=== PATIENT | male | born 1955 | race Caucasian/White ===

== ENCOUNTER 2023-06-22 06:33 | Outpatient (OUT) | payer MEDICARE, SELFPAY ==
[2023-06-22 07:14] LABS: Basophils Absolute Auto 0.1 10^3/uL (0.0-0.1); Eosinophils Absolute Auto 0.5 10^3/uL (0.0-0.7); Eosinophils Percent Auto 8.7 % (0.9-7.0); Hematocrit 45.4 % (42.0-54.0); Hemoglobin 15.8 g/dL (14.0-18.0); Immature Granulocytes Abs Auto 0.02 10^3/uL (0.00-0.03); Immature Granulocytes Pct Auto 0.3 % (0.0-0.5); Lymphocytes Absolute Auto 1.2 10^3/uL (1.2-3.8); Lymphocytes Percent Auto 19.6 % (20.5-60.0); Mean Corpuscular HGB Conc 34.8 g/dL (29.9-35.2); Mean Corpuscular Hemoglobin 36.1 pg (25.9-34.0); Mean Corpuscular Volume 103.7 fL (80.0-94.0); Mean Platelet Volume 8.6 fL (9.5-13.5); Monocytes Absolute Auto 0.8 10^3/uL (0.3-0.8); Monocytes Percent Auto 12.2 % (1.7-12.0); Neutrophils Absolute Auto 3.6 10^3/uL (1.4-6.5); Neutrophils Percent Auto 58.2 % (43.0-75.0); Platelet Count 310 10^3/uL (150-450); Red Blood Count 4.38 10^6/uL (4.70-6.10); Red Cell Distribution Width 11.2 % (11.0-15.0); White Blood Count 6.2 10^3/uL (4.0-11.0)
[2023-06-22 07:52] LABS: Estimated Average Glucose 103 mg/dL; Glycohemoglobin A1C 5.2 % (4.5-6.2)
[2023-06-22 08:03] LABS: Alanine Aminotransferase 21 U/L (16-63); Albumin Globulin Ratio 1.1; Albumin Level 4.2 g/dL (3.4-5.0); Alkaline Phosphatase 74 U/L (46-116); Aspartate Amino Transferase 21 U/L (15-37); BUN Creatinine Ratio 10.7; Bilirubin Total 0.4 mg/dL (0.2-1.0); Calcium 8.7 mg/dL (8.5-10.1); Carbon Dioxide 26.7 mmol/L (21.0-32.0); Chloride 96 mmol/L (98-107); Cholesterol 186 mg/dL (<=200); Estimated GFR (African America >60 (>=60); Estimated GFR (Non-African Ame >60 (>=60); Free T3 2.63 pg/mL (2.18-3.98); Globulin 3.7 g/dL; Glucose 93 mg/dL (74-106); HDL Cholesterol 95 mg/dL (40-60); Potassium 4.7 mmol/L (3.5-5.1); Sodium 134 mmol/L (136-145); Thyroid Stimulating Hormone 1.307 uIU/mL (0.358-3.740); Total Protein 7.9 g/dL (6.4-8.2); Triglycerides 88 mg/dL (<=150); VLDL CHOLESTEROL 17.6 mg/dL
[2023-06-22 08:18] LABS: Prostate Specific Antigen Scrn 0.84 ng/mL (<=4.00)
== END 2023-06-22 06:34 | disposition home or self-care (01) ==
LOC: LAB 06:33
PROVIDERS: PCP Family Medicine; Visit Provider Family Medicine
DX: J44.9 Chronic obstructive pulmonary disease, unspecified (principal); N40.0 Benign prostatic hyperplasia without lower urinary tract symptoms; E78.5 Hyperlipidemia, unspecified; R73.09 Other abnormal glucose; Z12.5 Encounter for screening for malignant neoplasm of prostate; R53.83 Other fatigue
CPT/HCPCS: 36415; 80053; 80061; 82607; 82746; 83036; 84436; 84443; 84481; 85025; G0103

== ENCOUNTER 2023-06-28 07:59 | Outpatient (OUT) | payer MEDICARE, SELFPAY ==
--- OUTSIDE RECORDS SUMMARY | 2023-06-28 08:01 | XMS_ITS | CCD ---
Author Name Unknown Address [address] [facility] [address] [place] [address] Organization [facility] Care Team Providers Care Lightout Examiner Name Role Phone VIMAL REYNOLDS Admitting Unavailable VIMAL REYNOLDS Attending Unavailable VIMAL REYNOLDS Referring Unavailable VIMAL REYNOLDS Primary Care Unavailable GUADALUPE, DR PERRY Consulting Unavailable HARESHY, DR PERRY Primary Care Unavailable HOY, DR PERRY Admitting Unavailable HOY, DR PERRY Attending Unavailable HAY, DR HERRERA Consulting Unavailable RIADALLAS Consulting Unavailable HARESHY, DR PERRY Consulting Unavailable GUADALUPE, DR PERRY Primary Care Unavailable HOY, DR PERRY Admitting Unavailable HOY, DR PERRY Attending Unavailable HOY, DR PERRY Consulting Unavailable HOY, DR PERRY Primary Care Unavailable HOY, DR PERRY Admitting Unavailable HOJames, DR PERRY Attending Unavailable Problems Active Problems Problem Classification Problem Date Documented Date Episodic/Chronic Alcohol-related disorders (1 source) Alcohol abuse, uncomplicated; Translations: [ALCOHOL ABUSE UNCOMPLICATED] Onset: 09-11-2021 Chronic Chronic obstructive pulmonary disease and bronchiectasis (1 source) Chronic obstructive pulmonary disease, unspecified; Translations: [COPD UNSPECIFIED] Onset: 06-27-2022 Chronic Coronary atherosclerosis and other heart disease (1 source) Atherosclerotic heart disease of [place] coronary artery without angina pectoris; Translations: [ATHSCL HEART DISEASE OF [place] CORONARY ARTERY W/O ANG PCTRS] Onset: 11-13-2017 Chronic Diabetes mellitus without complication (1 source) Other abnormal glucose; Translations: [OTHER ABNORMAL GLUCOSE] Onset: 06-27-2022 Episodic Diseases of white blood cells (1 source) Elevated white blood cell count, unspecified; Translations: [ELEVATED WHITE BLOOD CELL COUNT UNS] Onset: 09-11-2021 Chronic Disorders of lipid metabolism (1 source) Hyperlipidemia, unspecified; Translations: [HYPERLIPIDEMIA UNSPECIFIED] Onset: 06-27-2022 Chronic Esophageal disorders (1 source) Gastro-esophageal reflux disease without esophagitis; Translations: [GERD WITHOUT ESOPHAGITIS] Onset: 09-11-2021 Chronic Essential hypertension (1 source) Essential (primary) hypertension; Translations: [ESSENTIAL PRIMARY HYPERTENSION] Onset: 09-11-2021 Chronic Hyperplasia of prostate (1 source) Benign prostatic hyperplasia without lower urinary tract symptoms; Translations: [BENIGN PROSTATIC HYPRPLASIA WO LUTS] Onset: 09-11-2021 Chronic Osteoarthritis (1 source) Unspecified osteoarthritis, unspecified site; Translations: [UNSPECIFIED OSTEOARTHRITIS UNS SITE] Onset: 09-11-2021 Chronic Osteoporosis (2 sources) Other osteoporosis without current pathological fracture; Translations: [Age-related osteoporosis without current pathological fracture] Onset: 11-13-2017 Chronic Other lower respiratory disease (8 sources) Other nonspecific abnormal finding of lung field; Translations: [OTHER NONSPECIFIC ABNORMAL FINDING OF LUNG FIELD] Onset: 11-13-2017 Episodic Other male genital disorders (1 source) Male erectile dysfunction, unspecified; Translations: [MALE ERECTILE DYSFUNCTION UNS] Onset: 09-11-2021 Chronic Other screening for suspected conditions (not mental disorders or infectious disease) (2 sources) Encounter for screening for malignant neoplasm of prostate; Translations: [Other specified abnormal findings of blood chemistry] Onset: 09-11-2021 Episodic Peripheral and visceral atherosclerosis (1 source) Atherosclerosis of aorta; Translations: [ATHEROSCLEROSIS OF AORTA] Onset: 11-13-2017 Chronic Substance-related disorders (1 source) Nicotine dependence, cigarettes, uncomplicated; Translations: [NICOTINE DEPEND CIGARETTES UNCOMP] Onset: 09-11-2021 Chronic Unclassified (1 source) NM PET CT SKULL-MID THIGH AND CT CHEST WO CONTRAST Onset: 11-13-2017 Unclassified (1 source) NM PET CT SKULL-MID THIGH Onset: 11-13-2017 Unclassified (1 source) CONTACT W/AND (SUSP) EXPOS COVID-19; Translations: [CONTACT W/AND (SUSP) EXPOS COVID-19] Onset: 09-11-2021 Past or Other Problems Problem Classification Problem Date Documented Da te Episodic/Chronic Abdominal pain (2 sources) Unspecified abdominal pain; Translations: [UNSPECIFIED ABDOMINAL PAIN] Onset: 09-06-2021 Episodic Acute and unspecified renal failure (1 source) Acute kidney failure, unspecified; Translations: [ACUTE KIDNEY FAILURE UNSPECIFIED] Onset: 09-11-2021 Episodic Fluid and electrolyte disorders (2 sources) Hypo-osmolality and hyponatremia; Translations: [Dehydration] Onset: 09-11-2021 Episodic Other aftercare (1 source) Other tool drawing checker (current) drug therapy; Translations: [OTH CUSTODIAL CURRENT DRUG THERAPY] Onset: 09-11-2021 Episodic Pancreatic disorders (not diabetes) (1 source) Alcohol induced acute pancreatitis without necrosis or infection; Translations: [ALCHL INDCD ACT PANCRTS WO NCRS/INF] Onset: 09-11-2021 Episodic Pleurisy; pneumothorax; pulmonary collapse (2 sources) Pleural effusion, not elsewhere classified; Translations: [Pleural plaque without asbestos] Onset: 11-13-2017 Episodic Residual codes; unclassified (1 source) Contact with and (suspected) exposure to asbestos; Translations: [CONTACT AND SUSPECTED EXPOSURE ASBESTOS] Onset: 09-11-2021 Episodic Results Test Name Value Interpretation Reference Range Facility CT CHEST W CONon 07-09-2022 CT CHEST W CON EXAMINATION: CT CHES T W CON HISTORY: Lung field abnormal , follow up nodules COMPARISON: 05/26/2021 TECHNIQUE: Multi-planar CT images were created with IV contrast. Axial, Coronal, and Sagittal images. Dose reduction techniques were achieved by using automated exposure control and/or adjustment of mA and/or kV according to patient size and/or use of iterative reconstruction technique. FINDINGS: LUNGS: Stable moderate centrilobular emphysema right greater than left. Right lung volume loss is unchanged. Mild right-sided bronchiectasis and peribronchial thickening. Stable scattered linear opacities in the right mid to lower lung zone with scattered punctate pulmonary nodules measuring up to 5 mm. PLEURA: Calcified right pleural thickening, grossly stable VASCULATURE: Normal postcontrast opacification of the central pulmonary arterial tree with no filling defects SELIN: No mass or adenopathy. MEDIASTINUM: No mass or adenopathy. CARDIAC: No enlargement or pericardial effusion. Moderate coronary atherosclerosis AORTA: No aneurysm or dissection. CHEST WALL: No mass or axillary adenopathy. BONES: T6 wedge compression fracture with kyphoplasty LIMITED ABDOMEN: Diffuse hypoattenuation of the liver suggesting hepatic steatosis. Punctate calcifications of the spleen, prior granulomatous process OTHER: Negative. IMPRESSION: Mild to moderate emphysema Scattered stable punctate pulmonary nodules Stable right-sided pleural thickening/plaques with calcifications No central pulmonary thromboembolic disease Electronically authenticated by: JENNIFER CARTER Date: 2022-07-09 11:16 Normal [facility] INSULINon 06-23-2022 Insulin 3.4 uIU/mL Normal 2.6-24.9 [facility] Comment on above: Performed By: #### A MY, CMP, LIPA #### [facility] [address] [place] [address] Dr. Pam Young CBC AUTO DIFFon 06-22-2022 BASO # 0.1 103/ul Normal 0.0-0.1 [facility] Comment on above: Performed By: #### C BC #### [facility] [address] [place] [address] Dr. Pam Young Basophils/100 WBC (Bld) 0.8 % Normal 0.2-2.0 [facility] Comment on above: Performed By: #### C BC #### [facility] [address] [place] [address] Dr. Pam Young EO # 0.6 103/ul Normal 0.0-0.7 [facility] Comment on above: Performed By: #### C BC #### [facility] [address] [place] [address] Dr. Pam Young Eosinophils/100 WBC (Bld) 9.0 % Critically high 0.9-7.0 [facility] Comment on above: Performed By: #### C BC #### [facility] [address] [place] [address] Dr. Pam Young Erythrocyte distribution width (RBC) [Ratio] 11.7 % Normal 11.0-15.0 [facility] Comment on above: Performed By: #### C BC #### [facility] [address] [place] [address] Dr. Pam Young Hematocrit (Bld) [Volume fraction] 43.0 % Normal 42.0-54.0 [facility] Comment on above: Performed By: #### C BC #### [facility] [address] [place] [address] Dr. Pam Young Hemoglobin (Bld) [Mass/Vol] 15.5 g/dL Normal 14.0-18.0 [facility] Comment on above: Performed By: #### C BC #### [facility] [address] [place] [address] Dr. aPm Young IG # 0.02 10e3/ul Normal 0.00-0.03 [facility] Comment on above: Performed By: #### C BC #### [facility] [address] [place] [address] Dr. Pam Young IG % 0.3 % Normal 0.0-0.5 [facility] Comment on above: Performed By: #### C BC #### [facility] [address] [place] [address] Dr. Pam Young LYMPH # 1.7 103/ul Normal 1.2-3.8 [facility] Comment on above: Performed By: #### C BC #### [facility] [address] [place] [address] Dr. Pam Young Lymphocytes/100 WBC (Bld) 23.3 % Normal 20.5-60.0 [facility] Comment on above: Performed By: #### C BC #### [facility] [address] [place] [address] Dr. Pam Young MANUAL DIFF REQ NO Normal [facility] Comment on above: Performed By: #### C BC #### [facility] [address] [place] [address] Dr. Pam Young MCH (RBC) [Entitic mass] 36.1 pg Critically high 25.9-34.0 [facility] Comment on above: Performed By: #### C BC #### [facility] [address] [place] [address] Dr. Pam Young MCHC (RBC) [Mass/Vol] 36.0 g/dL Critically high 29.9-35.2 [facility] Comment on above: Performed By: #### C BC #### [facility] [address] [place] [address] Dr. Pam Young MCV (RBC) [Entitic vol] 100.2 fL Critically high 80.0-94.0 [facility] Comment on above: Performed By: #### C BC #### [facility] [address] [address] [address] Pam Young MONO # 0.8 103/ul Normal 0.3-0.8 [facility] Comment on above: Performed By: #### C BC #### [facility] [address] [address] [address] Pam Young Monocytes/100 WBC (Bld) 11.1 % Normal 1.7-12.0 [facility] Comment on above: Performed By: #### C BC #### [facility] [address] [place] [address] Dr. Pam Young NEUT # 3.9 103/ul Normal 1.4-6.5 [facility] Comment on above: Performed By: #### C BC #### [facility] [address] [place] [address] Dr. Pam Young Neutrophils/100 WBC (Bld) 55.5 % Normal 43.0-75.0 [facility] Comment on above: Performed By: #### C BC #### [facility] [address] [place] [address] Dr. Pam Young Platelet mean volume (Bld) [Entitic vol] 8.9 fL Critically low 9.5-13.5 [facility] Comment on above: Performed By: #### C BC #### [facility] [address] [place] [address] Dr. Pam Young PLT 279 103/ul Normal 150-450 [facility] Comment on above: Performed By: #### C BC #### [facility] [address] [place] [address] Dr. Pam Young RBC 4.29 106/ul Critically low 4.70-6.10 [facility] Comment on above: Performed By: #### C BC #### [facility] [address] [place] [address] Dr. Pam Young WBC 7.1 103/ul Normal 4.0-11.0 [facility] Comment on above: Performed By: #### C BC #### [facility] [address] [place] [address] Dr. Pam Young GLYCOHEMOGLOBIN A1Con 2021 ADA RECOMMENDATION SEE BELOW Normal [facility] Comment on above: Result Comment: ADA RECOMMENDED LIMIT 4.0 - 6.0 ADA THERAPEUTIC TARGET < 7.0 ACTION SUGGESTED > 7.0 Performed By: #### A 1C #### [facility] [address] [address] [address] Pam Young Glucose [Mass/Vol] 105 mg/dL Normal [facility] Comment on above: Performed By: #### A 1C #### [facility] [address] [address] [address] Pam Young HbA1c (Bld) [Mass fraction] 5.3 % Normal 4.5-6.2 [facility] Comment on above: Performed By: #### A 1C #### [facility] [address] [place] [address] Dr. Pam Young LIPID PROFILEon 06-22-2022 CHOL-HDL RATIO NORM SEE BELOW Normal [facility] Comment on above: Result Comment: 3.3 - 4.4 LOW RISK 4.4 - 7.1 AVERAGE RISK 7.1 - 11.0 MODERATE RISK >11.0 HIGH RISK Performed By: #### C MP, URIC, LIPID #### [facility] [address] [place] [address] Dr. Pam Young Cholesterol [Mass/Vol] 207 mg/dL Critically high <=200 [facility] Comment on above: Performed By: #### C MP, URIC, LIPID #### [facility] [address] [place] [address] Dr. Pam Young Cholesterol in HDL [Mass/Vol] 72 mg/dL Critically high 40-60 [facility] Comment on above: Performed By: #### C MP, URIC, LIPID #### [facility] [address] [place] [address] Dr. Pam Young Cholesterol in LDL [Mass/Vol] 123.6 mg/dL Normal [facility] Comment on above: Performed By: #### C MP, URIC, LIPID #### [facility] [address] [place] [address] Dr. Pam Young Cholesterol.total/ Cholesterol in HDL [Mass ratio] 2.9 {ratio} Normal [facility] Comment on above: Performed By: #### C MP, URIC, LIPID #### [facility] [address] [address] [address] Pam Young HDL NORMAL > or = 60 mg/dl - LO W CARDIOVASCULAR RISK <40 mg/dl - HIGH CARDIOVASCULAR RISK Normal [facility] Comment on above: Performed By: #### C MP, URIC, LIPID #### [facility] [address] [address] [address] Pam Young LDL CALC NORMAL SEE BELOW Normal [facility] Comment on above: Result Comment: <100 mg/dl OPTIMAL 100 - 129 mg/dl NEAR OR ABOVE OPTIMAL 130 - 159 mg/dl BORDERLINE HIGH 160 - 189 mg/dl HIGH >190 mg/dl VERY HIGH Performed By: #### C MP, URIC, LIPID #### [facility] [address] [address] [address] Pam Young Triglyceride [Mass/Vol] 57 mg/dL Normal <=150 [facility] Comment on above: Performed By: #### C MP, URIC, LIPID #### [facility] [address] [address] [address] Pam Young VLDL CALC 11.4 mg/dL Normal [facility] Comment on above: Performed By: #### C MP, URIC, LIPID #### [facility] [address] [address] [address] Pam Young PROF 14(COMP METB)on 022 Albumin [Mass/Vol] 3.9 g/dL Normal 3.4-5.0 [facility] Comment on above: Performed By: #### C MP, URIC, LIPID #### [facility] [address] [place] [address] Dr. Pam Young Albumin/Globulin [Mass ratio] 1.0 {ratio} Normal [facility] Comment on above: Performed By: #### C MP, URIC, LIPID #### [facility] [address] [address] [address] Pam Young ALP [Catalytic activity/Vol] 73 U/L Normal 46-116 [facility] Comment on above: Performed By: #### C MP, URIC, LIPID #### [facility] [address] [place] [address] Dr. Pam Young ALT [Catalytic activity/Vol] 17 U/L Normal 16-63 [facility] Comment on above: Performed By: #### C MP, URIC, LIPID #### [facility] [address] [place] [address] Dr. Pam Young Anion gap [Moles/Vol] 12.5 mmol/L Normal [facility] Comment on above: Performed By: #### C MP, URIC, LIPID #### [facility] [address] [place] [address] Dr. Pam Young AST [Catalytic activity/Vol] 18 U/L Normal 15-37 [facility] Comment on above: Performed By: #### C MP, URIC, LIPID #### [facility] [address] [place] [address] Dr. Pam Young Bilirubin [Mass/Vol] 0.6 mg/dL Normal 0.2-1.0 [facility] Comment on above: Performed By: #### C MP, URIC, LIPID #### [facility] [address] [place] [address] Dr. Pam Young Calcium [Mass/Vol] 9.0 mg/dL Normal 8.5-10.1 [facility] Comment on above: Performed By: #### C MP, URIC, LIPID #### [facility] [address] [place] [address] Dr. Pam Young Chloride [Moles/Vol] 100 mmol/L Normal 98-107 [facility] Comment on above: Performed By: #### C MP, URIC, LIPID #### [facility] [address] [place] [address] Dr. Pam Young CO2 [Moles/Vol] 26.2 mmol/L Normal 21.0-32.0 [facility] Comment on above: Performed By: #### C MP, URIC, LIPID #### [facility] [address] [place] [address] Dr. Pam Young Creatinine [Mass/Vol] 0.81 mg/dL Normal 0.70-1.30 [facility] Comment on above: Performed By: #### C MP, URIC, LIPID #### [facility] [address] [address] [address] Pam Young EGFR-AF [place] >60 Normal >=60 [facility] Comment on above: Performed By: #### C MP, URIC, LIPID #### [facility] [address] [address] [address] Pam Young EGFR-NON AF [place] >60 Normal >=60 [facility] Comment on above: Performed By: #### C MP, URIC, LIPID #### [facility] [address] [place] [address] Dr. Pam Young Globulin (S) [Mass/Vol] 3.8 g/dL Normal [facility] Comment on above: Performed By: #### C MP, URIC, LIPID #### [facility] [address] [address] [address] Pam Young Glucose [Mass/Vol] 94 mg/dL Normal 74-106 [facility] Comment on above: Performed By: #### C MP, URIC, LIPID #### [facility] [address] [place] [address] Dr. Pam Young Potassium [Moles/Vol] 4.7 mmol/L Normal 3.5-5.1 [facility] Comment on above: Performed By: #### C MP, URIC, LIPID #### [facility] [address] [place] [address] Dr. Pam Young Protein [Mass/Vol] 7.7 g/dL Normal 6.4-8.2 [facility] Comment on above: Performed By: #### C MP, URIC, LIPID #### [facility] [address] [place] [address] Dr. Pam Young Sodium [Moles/Vol] 134 mmol/L Critically low 136-145 [facility] Comment on above: Performed By: #### C MP, URIC, LIPID #### [facility] [address] [place] [address] Dr. Pam Young Urea nitrogen [Mass/Vol] 10.0 mg/dL Normal 7.0-18.0 [facility] Comment on above: Performed By: #### C MP, URIC, LIPID #### [facility] [address] [place] [address] Dr. Pam Young Urea nitrogen/Creatinin e [Mass ratio] 12.3 mg/mg Normal [facility] Comment on above: Performed By: #### C MP, URIC, LIPID #### [facility] [address] [place] [address] Dr. Pam Young URIC ACID SERUMon 06-22-2022 Urate [Mass/Vol] 6.0 mg/dL Normal 3.5-7.2 [facility] Comment on above: Performed By: #### C MP, URIC, LIPID #### [facility] [address] [place] [address] Dr. Pam Young AMYLASEon 09-07-2021 Amylase [Catalytic activity/Vol] 123 U/L Critically high 31-110 [facility] Comment on above: Performed By: #### A MY, CMP, LIPA #### [facility] [address] [place] [address] Dr. Pam Young CBC AUTO DIFFon 09-07-2021 BASO # 0.0 103/ul Normal 0.0-0.1 [facility] Comment on above: Performed By: #### A MY, CMP, LIPA #### [facility] [address] [place] [address] Dr. Pam Young Basophils/100 WBC (Bld) 0.3 % Normal 0.2-2.0 [facility] Comment on above: Performed By: #### A MY, CMP, LIPA #### [facility] [address] [place] [address] Dr. Pam Young EO # 0.1 103/ul Normal 0.0-0.7 [facility] Comment on above: Performed By: #### A MY, CMP, LIPA #### [facility] [address] [place] [address] Dr. Pam Young Eosinophils/100 WBC (Bld) 1.3 % Normal 0.9-7.0 [facility] Comment on above: Performed By: #### A MY, CMP, LIPA #### [facility] [address] [address] [address] Pam Young Erythrocyte distribution width (RBC) [Ratio] 11.9 % Normal 11.0-15.0 [facility] Comment on above: Performed By: #### A MY, CMP, LIPA #### [facility] [address] [place] [address] Dr. Pam Young Hematocrit (Bld) [Volume fraction] 37.3 % Critically low 42.0-54.0 [facility] Comment on above: Performed By: #### A MY, CMP, LIPA #### [facility] [address] [place] [address] Dr. Pam Young Hemoglobin (Bld) [Mass/Vol] 12.4 g/dL Critically low 14.0-18.0 [facility] Comment on above: Performed By: #### A MY, CMP, LIPA #### [facility] [address] [place] [address] Dr. Pam Young IG # 0.05 10e3/ul Critically high 0.00-0.03 [facility] Comment on above: Performed By: #### A MY, CMP, LIPA #### [facility] [address] [place] [address] Dr. Pam Young IG % 0.5 % Normal 0.0-0.5 [facility] Comment on above: Performed By: #### A MY, CMP, LIPA #### [facility] [address] [place] [address] Dr. Pam Young LYMPH # 0.8 103/ul Critically low 1.2-3.8 [facility] Comment on above: Performed By: #### A MY, CMP, LIPA #### [facility] [address] [place] [address] Dr. Pam Young Lymphocytes/100 WBC (Bld) 8.0 % Critically low 20.5-60.0 [facility] Comment on above: Performed By: #### A MY, CMP, LIPA #### [facility] [address] [address] [address] Pam Young MANUAL DIFF REQ NO Normal [facility] Comment on above: Performed By: #### A MY, CMP, LIPA #### [facility] [address] [place] [address] Dr. Pam Young MCH (RBC) [Entitic mass] 34.6 pg Critically high 25.9-34.0 [facility] Comment on above: Performed By: #### A MY, CMP, LIPA #### [facility] [address] [place] [address] Dr. Pam Young MCHC (RBC) [Mass/Vol] 33.2 g/dL Normal 29.9-35.2 [facility] Comment on above: Performed By: #### A MY, CMP, LIPA #### [facility] [address] [place] [address] Dr. Pam Young MCV (RBC) [Entitic vol] 104.2 fL Critically high 80.0-94.0 [facility] Comment on above: Performed By: #### A MY, CMP, LIPA #### [facility] [address] [place] [address] Dr. Pam Young MONO # 0.9 103/ul Critically high 0.3-0.8 [facility] Comment on above: Performed By: #### A MY, CMP, LIPA #### [facility] [address] [place] [address] Dr. Pam Young Monocytes/100 WBC (Bld) 8.9 % Normal 1.7-12.0 [facility] Comment on above: Performed By: #### A MY, CMP, LIPA #### [facility] [address] [place] [address] Dr. Pam Young NEUT # 8.3 103/ul Critically high 1.4-6.5 [facility] Comment on above: Performed By: #### A MY, CMP, LIPA #### [facility] [address] [address] [address] Pam Young Neutrophils/100 WBC (Bld) 81.0 % Critically high 43.0-75.0 [facility] Comment on above: Performed By: #### A MY, CMP, LIPA #### [facility] [address] [place] [address] Dr. Pam Young Platelet mean volume (Bld) [Entitic vol] 9.1 fL Critically low 9.5-13.5 [facility] Comment on above: Performed By: #### A MY, CMP, LIPA #### [facility] [address] [place] [address] Dr. Pam Young PLT 230 103/ul Normal 150-450 [facility] Comment on above: Performed By: #### A MY, CMP, LIPA #### [facility] [address] [place] [address] Dr. Pam Young RBC 3.58 106/ul Critically low 4.70-6.10 [facility] Comment on above: Performed By: #### A MY, CMP, LIPA #### [facility] [address] [place] [address] Dr. Pam Young WBC 10.2 103/ul Normal 4.0-11.0 [facility] Comment on above: Performed By: #### A MY, CMP, LIPA #### [facility] [address] [place] [address] Dr. Pam Young LIPASEon 09-07-2021 Lipase [Catalytic activity/Vol] 442.0 U/L Critically high 23.0-300.0 [facility] Comment on above: Performed By: #### A MY, CMP, LIPA #### [facility] [address] [place] [address] Dr. Pam Young OSMOLALITYon 09-07-2021 Osmolality [Osmolality] 266 mosm/kg Critically low 280-301 [facility] Comment on above: Performed By: #### A MY, CMP, LIPA #### [facility] [address] [place] [address] Dr. Pam Young PROF 14(COMP METB)on 022 Albumin [Mass/Vol] 3.1 g/dL Critically low 3.5-5.0 [facility] Comment on above: Performed By: #### A MY, CMP, LIPA #### [facility] [address] [address] [address] Pam Young Albumin/Globulin [Mass ratio] 0.9 {ratio} Normal [facility] Comment on above: Performed By: #### A MY, CMP, LIPA #### [facility] [address] [address] [address] Pam Young ALP [Catalytic activity/Vol] 82 U/L Normal 38-126 [facility] Comment on above: Performed By: #### A MY, CMP, LIPA #### [facility] [address] [place] [address] Dr. Pam Young ALT [Catalytic activity/Vol] 19 U/L Critically low 21-72 [facility] Comment on above: Performed By: #### A MY, CMP, LIPA #### [facility] [address] [address] [address] Pam Young Anion gap [Moles/Vol] 11.5 mmol/L Normal [facility] Comment on above: Performed By: #### A MY, CMP, LIPA #### [facility] [address] [place] [address] Dr. Pam Young AST [Catalytic activity/Vol] 24 U/L Normal 17-59 [facility] Comment on above: Performed By: #### A MY, CMP, LIPA #### [facility] [address] [place] [address] Dr. Pam Young Bilirubin [Mass/Vol] 1.1 mg/dL Normal 0.2-1.3 [facility] Comment on above: Performed By: #### A MY, CMP, LIPA #### [facility] [address] [place] [address] Dr. Pam Young Calcium [Mass/Vol] 8.2 mg/dL Critically low 8.4-10.2 [facility] Comment on above: Performed By: #### A MY, CMP, LIPA #### [facility] [address] [address] [address] Pam Young Chloride [Moles/Vol] 102 mmol/L Normal 98-107 [facility] Comment on above: Performed By: #### A MY, CMP, LIPA #### [facility] [address] [address] [address] Pam Young CO2 [Moles/Vol] 24.0 mmol/L Normal 22.0-30.0 [facility] Comment on above: Performed By: #### A MY, CMP, LIPA #### [facility] [address] [address] [address] Pam Young Creatinine [Mass/Vol] 0.86 mg/dL Normal 0.66-1.25 [facility] Comment on above: Performed By: #### A MY, CMP, LIPA #### [facility] [address] [place] [address] Dr. Pam Young EGFR-AF CHINESE >60 Normal >=60 [facility] Comment on above: Performed By: #### A MY, CMP, LIPA #### [facility] [address] [address] [address] Pam Young EGFR-NON AF CHINESE >60 Normal >=60 [facility] Comment on above: Performed By: #### A MY, CMP, LIPA #### [facility] [address] [place] [address] Dr. Pam Young Globulin (S) [Mass/Vol] 3.5 g/dL Normal [facility] Comment on above: Performed By: #### A MY, CMP, LIPA #### [facility] [address] [address] [address] Pam Young Glucose [Mass/Vol] 100 mg/dL Normal 74-106 [facility] Comment on above: Performed By: #### A MY, CMP, LIPA #### [facility] [address] [address] [address] Pam Young Potassium [Moles/Vol] 3.5 mmol/L Normal 3.4-5.0 [facility] Comment on above: Performed By: #### A MY, CMP, LIPA #### [facility] [address] [place] [address] Dr. Pam Young Protein [Mass/Vol] 6.6 g/dL Normal 6.1-8.2 [facility] Comment on above: Performed By: #### A MY, CMP, LIPA #### [facility] [address] [place] [address] Dr. Pam Young Sodium [Moles/Vol] 134 mmol/L Critically low 137-145 [facility] Comment on above: Performed By: #### A MY, CMP, LIPA #### [facility] [address] [place] [address] Dr. Pam Young Urea nitrogen [Mass/Vol] 10.0 mg/dL Normal 9.0-20.0 [facility] Comment on above: Performed By: #### A MY, CMP, LIPA #### [facility] [address] [place] [address] Dr. Pam Young Urea nitrogen/Creatinin e [Mass ratio] 11.6 mg/mg Normal [facility] Comment on above: Performed By: #### A MY, CMP, LIPA #### [facility] [address] [place] [address] Dr. Pam Young AMMONIAon 09-06-2021 Ammonia (P) [Mass/Vol] ug/dL Critically low 10-30 [facility] Comment on above: Performed By: #### P SASC #### [facility] [address] [place] [address] Dr. Pam Young AMYLASEon 09-06-2021 Amylase [Catalytic activity/Vol] 365 U/L Critically high 31-110 [facility] Comment on above: Result Comment: TEST REPEATED. CRITICAL VALUE VERIFIED Performed By: #### A MY, CMP, LIPA #### [facility] [address] [place] [address] Dr. aPm Young CBC AUTO DIFFon 09-06-2021 BASO # 0.0 103/ul Normal 0.0-0.1 [facility] Comment on above: Performed By: #### A MY, CMP, LIPA #### [facility] [address] [place] [address] Dr. Pam Young Basophils/100 WBC (Bld) 0.2 % Normal 0.2-2.0 [facility] Comment on above: Performed By: #### A MY, CMP, LIPA #### [facility] [address] [place] [address] Dr. Pam Young EO # 0.1 103/ul Normal 0.0-0.7 [facility] Comment on above: Performed By: #### A MY, CMP, LIPA #### [facility] [address] [place] [address] Dr. Pam Young Eosinophils/100 WBC (Bld) 0.7 % Critically low 0.9-7.0 [facility] Comment on above: Performed By: #### A MY, CMP, LIPA #### [facility] [address] [place] [address] Dr. Pam Young Erythrocyte distribution width (RBC) [Ratio] 11.8 % Normal 11.0-15.0 [facility] Comment on above: Performed By: #### A MY, CMP, LIPA #### [facility] [address] [place] [address] Dr. Pam Young Hematocrit (Bld) [Volume fraction] 38.1 % Critically low 42.0-54.0 [facility] Comment on above: Performed By: #### A MY, CMP, LIPA #### [facility] [address] [place] [address] Dr. Pam Young Hemoglobin (Bld) [Mass/Vol] 13.0 g/dL Critically low 14.0-18.0 [facility] Comment on above: Result Comment: Flui ds given Performed By: #### A MY, CMP, LIPA #### [facility] [address] [place] [address] Dr. Pam Young IG # 0.05 10e3/ul Critically high 0.00-0.03 [facility] Comment on above: Performed By: #### A MY, CMP, LIPA #### [facility] [address] [address] [address] Pam Young IG % 0.5 % Normal 0.0-0.5 [facility] Comment on above: Performed By: #### A MY, CMP, LIPA #### [facility] [address] [place] [address] Dr. Pam Young LYMPH # 0.9 103/ul Critically low 1.2-3.8 [facility] Comment on above: Performed By: #### A MY, CMP, LIPA #### [facility] [address] [place] [address] Dr. Pam Young Lymphocytes/100 WBC (Bld) 9.0 % Critically low 20.5-60.0 [facility] Comment on above: Performed By: #### A MY, CMP, LIPA #### [facility] [address] [place] [address] Dr. Pam Young MANUAL DIFF REQ NO Normal [facility] Comment on above: Performed By: #### A MY, CMP, LIPA #### [facility] [address] [place] [address] Dr. Pam Young MCH (RBC) [Entitic mass] 34.9 pg Critically high 25.9-34.0 [facility] Comment on above: Performed By: #### A MY, CMP, LIPA #### [facility] [address] [place] [address] Dr. Pam Young MCHC (RBC) [Mass/Vol] 34.1 g/dL Normal 29.9-35.2 [facility] Comment on above: Performed By: #### A MY, CMP, LIPA #### [facility] [address] [place] [address] Dr. Pam Young MCV (RBC) [Entitic vol] 102.1 fL Critically high 80.0-94.0 [facility] Comment on above: Performed By: #### A MY, CMP, LIPA #### [facility] [address] [place] [address] Dr. Pam Young MONO # 0.9 103/ul Critically high 0.3-0.8 [facility] Comment on above: Performed By: #### A MY, CMP, LIPA #### [facility] [address] [address] [address] Pam Young Monocytes/100 WBC (Bld) 8.6 % Normal 1.7-12.0 [facility] Comment on above: Performed By: #### A MY, CMP, LIPA #### [facility] [address] [place] [address] Dr. Pam Young NEUT # 8.2 103/ul Critically high 1.4-6.5 [facility] Comment on above: Performed By: #### A MY, CMP, LIPA #### [facility] [address] [place] [address] Dr. Pam Young Neutrophils/100 WBC (Bld) 81.0 % Critically high 43.0-75.0 [facility] Comment on above: Performed By: #### A MY, CMP, LIPA #### [facility] [address] [place] [address] Dr. Pam Young Platelet mean volume (Bld) [Entitic vol] 8.8 fL Critically low 9.5-13.5 [facility] Comment on above: Performed By: #### A MY, CMP, LIPA #### [facility] [address] [place] [address] Dr. Pam Young PLT 222 103/ul Normal 150-450 [facility] Comment on above: Performed By: #### A MY, CMP, LIPA #### [facility] [address] [place] [address] Dr. Pam Young RBC 3.73 106/ul Critically low 4.70-6.10 [facility] Comment on above: Performed By: #### A MY, CMP, LIPA #### [facility] [address] [place] [address] Dr. Pam Young WBC 10.2 103/ul Normal 4.0-11.0 [facility] Comment on above: Performed By: #### A MY, CMP, LIPA #### [facility] [address] [place] [address] Dr. Pam Young LIPASEon 09-06-2021 Lipase [Catalytic activity/Vol] 1485.0 U/L Critically high 23.0-300.0 [facility] Comment on above: Result Comment: TEST REPEATED. CRITICAL VALUE VERIFIED Performed By: #### A MY, CMP, LIPA #### [facility] [address] [place] [address] Dr. Pam Young PROF 14(COMP METB)on 022 Albumin [Mass/Vol] 3.2 g/dL Critically low 3.5-5.0 [facility] Comment on above: Performed By: #### A MY, CMP, LIPA #### [facility] [address] [place] [address] Dr. Pam Young Albumin/Globulin [Mass ratio] 1.0 {ratio} Normal [facility] Comment on above: Performed By: #### A MY, CMP, LIPA #### [facility] [address] [place] [address] Dr. Pam Young ALP [Catalytic activity/Vol] 70 U/L Normal 38-126 [facility] Comment on above: Performed By: #### A MY, CMP, LIPA #### [facility] [address] [place] [address] Dr. Pam Young ALT [Catalytic activity/Vol] 21 U/L Normal 21-72 [facility] Comment on above: Performed By: #### A MY, CMP, LIPA #### [facility] [address] [place] [address] Dr. Pam Young Anion gap [Moles/Vol] 10.7 mmol/L Normal [facility] Comment on above: Performed By: #### A MY, CMP, LIPA #### [facility] [address] [place] [address] Dr. Pam Young AST [Catalytic activity/Vol] 22 U/L Normal 17-59 [facility] Comment on above: Performed By: #### A MY, CMP, LIPA #### [facility] [address] [place] [address] Dr. Pam Young Bilirubin [Mass/Vol] 1.3 mg/dL Normal 0.2-1.3 [facility] Comment on above: Performed By: #### A MY, CMP, LIPA #### [facility] [address] [place] [address] Dr. Pam Young Calcium [Mass/Vol] 8.3 mg/dL Critically low 8.4-10.2 [facility] Comment on above: Performed By: #### A MY, CMP, LIPA #### [facility] [address] [place] [address] Dr. Pam Young Chloride [Moles/Vol] 100 mmol/L Normal 98-107 [facility] Comment on above: Performed By: #### A MY, CMP, LIPA #### [facility] [address] [place] [address] Dr. Pam Young CO2 [Moles/Vol] 25.0 mmol/L Normal 22.0-30.0 [facility] Comment on above: Performed By: #### A MY, CMP, LIPA #### [facility] [address] [place] [address] Dr. Pam Yonug Creatinine [Mass/Vol] 0.97 mg/dL Normal 0.66-1.25 [facility] Comment on above: Performed By: #### A MY, CMP, LIPA #### [facility] [address] [place] [address] Dr. Pam Young EGFR-AF CHINESE >60 Normal >=60 [facility] Comment on above: Performed By: #### A MY, CMP, LIPA #### [facility] [address] [place] [address] Dr. Pam Young EGFR-NON AF CHINESE >60 Normal >=60 [facility] Comment on above: Performed By: #### A MY, CMP, LIPA #### [facility] [address] [place] [address] Dr. Pam Young Globulin (S) [Mass/Vol] 3.1 g/dL Normal [facility] Comment on above: Performed By: #### A MY, CMP, LIPA #### [facility] [address] [address] [address] Pam Young Glucose [Mass/Vol] 109 mg/dL Critically high 74-106 T [facility] Comment on above: Performed By: #### A MY, CMP, LIPA #### [facility] [address] [place] [address] Dr. Pam Young Potassium [Moles/Vol] 3.7 mmol/L Normal 3.4-5.0 [facility] Comment on above: Performed By: #### A MY, CMP, LIPA #### [facility] [address] [place] [address] Dr. Pam Young Protein [Mass/Vol] 6.3 g/dL Normal 6.1-8.2 [facility] Comment on above: Performed By: #### A MY, CMP, LIPA #### [facility] [address] [place] [address] Dr. Pam Young Sodium [Moles/Vol] 132 mmol/L Critically low 137-145 [facility] Comment on above: Performed By: #### A MY, CMP, LIPA #### [facility] [address] [place] [address] Dr. Pam Young Urea nitrogen [Mass/Vol] 10.0 mg/dL Normal 9.0-20.0 [facility] Comment on above: Performed By: #### A MY, CMP, LIPA #### [facility] [address] [place] [address] Dr. Pam Young Urea nitrogen/Creatinin e [Mass ratio] 10.3 mg/mg Normal [facility] Comment on above: Performed By: #### A MY, CMP, LIPA #### [facility] [address] [place] [address] Dr. Pam Young AMYLASEon 09-05-2021 Amylase [Catalytic activity/Vol] 904 U/L Critically high 31-110 [facility] Comment on above: Result Comment: TEST REPEATED CRITICAL VALUE VERIFIED Performed By: #### P SASC #### [facility] [address] [place] [address] Dr. Pam Young BILIRUBIN CONJUGATED (DIRECT )on 09-05-2021 BILI, CONJUGATED 0.3 mg/dL Normal 0.0-0.3 [facility] Comment on above: Performed By: #### P SASC #### [facility] [address] [place] [address] Dr. Pam Young CBC AUTO DIFFon 09-05-2021 BASO # 0.0 103/ul Normal 0.0-0.1 [facility] Comment on above: Performed By: #### P SASC #### [facility] [address] [place] [address] Dr. Pam Young Basophils/100 WBC (Bld) 0.2 % Normal 0.2-2.0 [facility] Comment on above: Performed By: #### P SASC #### [facility] [address] [place] [address] Dr. Pam Young EO # 0.0 103/ul Normal 0.0-0.7 [facility] Comment on above: Performed By: #### P SASC #### [facility] [address] [place] [address] Dr. Pam Young Eosinophils/100 WBC (Bld) 0.3 % Critically low 0.9-7.0 [facility] Comment on above: Performed By: #### P SASC #### [facility] [address] [place] [address] Dr. Pam Young Erythrocyte distribution width (RBC) [Ratio] 11.4 % Normal 11.0-15.0 [facility] Comment on above: Performed By: #### P SASC #### [facility] [address] [place] [address] Dr. Pam Young Hematocrit (Bld) [Volume fraction] 42.4 % Normal 42.0-54.0 [facility] Comment on above: Performed By: #### P SASC #### [facility] [address] [place] [address] Dr. Pam Young Hemoglobin (Bld) [Mass/Vol] 15.3 g/dL Normal 14.0-18.0 [facility] Comment on above: Performed By: #### P SASC #### [facility] [address] [address] [address] Pam Young IG # 0.08 10e3/ul Critically high 0.00-0.03 [facility] Comment on above: Performed By: #### P SASC #### [facility] [address] [address] [address] Pam Young IG % 0.5 % Normal 0.0-0.5 [facility] Comment on above: Performed By: #### P SASC #### [facility] [address] [address] [address] Pam Young LYMPH # 0.6 103/ul Critically low 1.2-3.8 [facility] Comment on above: Performed By: #### P SASC #### [facility] [address] [address] [address] Pam Young Lymphocytes/100 WBC (Bld) 3.9 % Critically low 20.5-60.0 [facility] Comment on above: Performed By: #### P SASC #### [facility] [address] [address] [address] Pam Young MANUAL DIFF REQ NO Normal [facility] Comment on above: Performed By: #### P SASC #### [facility] [address] [address] [address] Pam Young MCH (RBC) [Entitic mass] 35.5 pg Critically high 25.9-34.0 [facility] Comment on above: Performed By: #### P SASC #### [facility] [address] [address] [address] Pam Young MCHC (RBC) [Mass/Vol] 36.1 g/dL Critically high 29.9-35.2 [facility] Comment on above: Performed By: #### P SASC #### [facility] [address] [address] [address] Pam Young MCV (RBC) [Entitic vol] 98.4 fL Critically high 80.0-94.0 [facility] Comment on above: Performed By: #### P SASC #### [facility] [address] [address] [address] Pam Young MONO # 1.0 103/ul Critically high 0.3-0.8 [facility] Comment on above: Performed By: #### P SASC #### [facility] [address] [address] [address] Pam Young Monocytes/100 WBC (Bld) 6.5 % Normal 1.7-12.0 [facility] Comment on above: Performed By: #### P SASC #### [facility] [address] [address] [address] Pam Young NEUT # 13.5 103/ul Critically high 1.4-6.5 [facility] Comment on above: Performed By: #### P SASC #### [facility] [address] [address] [address] Pam Young Neutrophils/100 WBC (Bld) 88.6 % Critically high 43.0-75.0 [facility] Comment on above: Performed By: #### P SASC #### [facility] [address] [address] [address] Pam Young Platelet mean volume (Bld) [Entitic vol] 8.9 fL Critically low 9.5-13.5 [facility] Comment on above: Performed By: #### P SASC #### [facility] [address] [address] [address] Pam Young PLT 269 103/ul Normal 150-450 [facility] Comment on above: Performed By: #### P SASC #### [facility] [address] [address] [address] Pam Young RBC 4.31 106/ul Critically low 4.70-6.10 [facility] Comment on above: Performed By: #### P SASC #### [facility] [address] [address] [address] Pam Young WBC 15.2 103/ul Critically high 4.0-11.0 [facility] Comment on above: Performed By: #### P SASC #### [facility] [id number] Pam Young CT ABD/PELV W CONon 09-06-19 CT ABD/PELV W CON EXAMINATION: CT ABD/ PELV W CON HISTORY: GENERALIZED ABDOMINAL PAIN COMPARISON: CT dated 04/02/2020 TECHNIQUE: Oral and IV contrast was administered. Sagittal and coronal reformatted images were produced. Dose reduction techniques were achieved by using automated exposure control and/or adjustment of mA and/or kV according to patient size and/or use of iterative reconstruction technique. FINDINGS: Stable calcified pleural plaques in the right lung with stable overall volume loss in the right lung. There are stable chronic changes in both lung bases. Lower mediastinal structures are stable in appearance. The liver shows stable enlargement with diffuse fatty change. The spleen, adrenal glands, and pancreas enhance normally. The pancreas enhances normally, but there is stranding and free fluid around the pancreas. The kidneys enhance symmetrically and show no calcifications or hydronephrosis. Stable calcified plaque in the aorta and branch vessels. The large and small bowel are normal caliber. Pelvic organs are stable in appearance. Urinary bladder is normal. No free air seen and there are no organized fluid collections to suggest abscess or pseudocyst formation. IMPRESSION: Findings are most consistent with pancreatitis, although other infectious/inflammatory conditions could cause the same appearance. Recommend correlation with appropriate labs. Other stable findings as above. Electronically authenticated by: DALLAS ROLLINS Date: 2021-09-05 10:22 Normal [facility] Covid-19 PCR (CVDTB)on SARS-CoV-2 (COVID-19) RNA CORNELL+probe Ql (Unsp spec) Not detected Normal NOT DETECTED [facility] Comment on above: Result Comment: When diagnostic testing is negative, the possibility of a false negative should be considered in the context of a patient's recent exposures and the presence of clinical signs and symptoms consistent with SARS-CoV-2. This test is not yet approved or cleared by the [place] Food and Drug Administration (FDA). This test was developed by [employer], [place], [place]. The performance characteristics of this test were validated by [facility]. The results are not intended to be used as the sole means for clinical diagnosis or patient management decisions. [facility] is authorized under Clinical Laboratory Improvement Amendments (CLIA) to perform high- complexity testing. This test is not yet approved or cleared by the [place] FDA. When there are no FDA-approved or cleared tests available, and other criteria are met, FDA can make tests available under an emergency access mechanism called an Emergency Use Authorization (EUA). The EUA for this test is supported by the [place] of Health and Human Service's declaration that circumstances exist to justify the emergency use of in vitro diagnostics for the detection and/or diagnosis of the virus that causes COVID-19. This EUA will remain in effect for the duration of the COVID-19 declaration justifying emergency of IVDs, unless it is terminated or revoked by the FDA (after which the test may no longer be used). Performed By: #### P SASC #### [facility] [address] [place] [address] Dr. Pam Young LACTATE/LACTIC ACIDon 2021 Lactate [Moles/Vol] 1.1 mmol/L Normal 0.7-2.0 [facility] Comment on above: Performed By: #### A MY, CMP, LIPA #### [facility] [address] [place] [address] Dr. Pam Young Lactate [Moles/Vol] 1.2 mmol/L Normal 0.7-2.0 [facility] Comment on above: Performed By: #### P SASC #### [facility] [address] [place] [address] Dr. Pam Young LIPASEon 09-05-2021 Lipase [Catalytic activity/Vol] U/L Critically high 23.0-300.0 [facility] Comment on above: Result Comment: TEST REPEATED CRITICAL VALUE VERIIFIED Performed By: #### P SASC #### [facility] [address] [place] [address] Dr. Pam Young PROF 14(COMP METB)on 022 Albumin [Mass/Vol] 4.2 g/dL Normal 3.5-5.0 [facility] Comment on above: Performed By: #### P SASC #### [facility] [address] [place] [address] Dr. Pam Young Albumin/Globulin [Mass ratio] 1.1 {ratio} Normal [facility] Comment on above: Performed By: #### P SASC #### [facility] [address] [address] [address] Pam Young ALP [Catalytic activity/Vol] 87 U/L Normal 38-126 [facility] Comment on above: Performed By: #### P SASC #### [facility] [address] [address] [address] Pam Young ALT [Catalytic activity/Vol] 32 U/L Normal 21-72 [facility] Comment on above: Performed By: #### P SASC #### [facility] [address] [address] [address] Pam Young Anion gap [Moles/Vol] 14.4 mmol/L Normal [facility] Comment on above: Performed By: #### P SASC #### [facility] [address] [place] [address] Dr. Pam Young AST [Catalytic activity/Vol] 33 U/L Normal 17-59 [facility] Comment on above: Result Comment: SPEC IMEN SLIGHTLY LIPEMIC MAY AFFECT K+ AND AST Performed By: #### P SASC #### [facility] [address] [address] [address] Pam Young Bilirubin [Mass/Vol] 1.8 mg/dL Critically high 0.2-1.3 [facility] Comment on above: Performed By: #### P SASC #### [facility] [address] [address] [address] Pam Young Calcium [Mass/Vol] 8.6 mg/dL Normal 8.4-10.2 [facility] Comment on above: Performed By: #### P SASC #### [facility] [address] [place] [address] Dr. Pam Young Chloride [Moles/Vol] 90 mmol/L Critically low 98-107 [facility] Comment on above: Performed By: #### P SASC #### [facility] [address] [place] [address] Dr. Pam Young CO2 [Moles/Vol] 21.7 mmol/L Critically low 22.0-30.0 [facility] Comment on above: Performed By: #### P SASC #### [facility] [address] [address] [address] Pam Young Creatinine [Mass/Vol] 0.73 mg/dL Normal 0.66-1.25 [facility] Comment on above: Performed By: #### P SASC #### [facility] [address] [address] [address] Pam Young EGFR-AF CHINESE >60 Normal >=60 [facility] Comment on above: Performed By: #### P SASC #### [facility] [address] [address] [address] Pam Young EGFR-NON AF CHINESE >60 Normal >=60 [facility] Comment on above: Performed By: #### P SASC #### [facility] [address] [place] [address] Dr. Pam Young Globulin (S) [Mass/Vol] 3.7 g/dL Normal [facility] Comment on above: Performed By: #### P SASC #### [facility] [address] [address] [address] Pam Young Glucose [Mass/Vol] 108 mg/dL Critically high 74-106 [facility] Comment on above: Performed By: #### P SASC #### [facility] [address] [place] [address] Dr. Pam Young Potassium [Moles/Vol] 4.1 mmol/L Normal 3.4-5.0 [facility] Comment on above: Result Comment: SPEC IMEN SLIGHTLY LIPEMIC MAY AFFECT K+ AND AST Performed By: #### P SASC #### [facility] [address] [place] [address] Dr. Pam Young Protein [Mass/Vol] 7.9 g/dL Normal 6.1-8.2 [facility] Comment on above: Performed By: #### P SASC #### [facility] [address] [place] [address] Dr. Pam Young Sodium [Moles/Vol] 122 mmol/L Critically low 137-145 [facility] Comment on above: Result Comment: TEST REPEATED CRITICAL VALUE VERIFIED Performed By: #### P SASC #### [facility] [address] [place] [address] Dr. Pam Young Urea nitrogen [Mass/Vol] 8.0 mg/dL Critically low 9.0-20.0 [facility] Comment on above: Performed By: #### P SASC #### [facility] [address] [place] [address] Dr. Pam Young Urea nitrogen/Creatinin e [Mass ratio] 11.0 mg/mg Normal [facility] Comment on above: Performed By: #### P SASC #### [facility] [address] [place] [address] Dr. Pam Young SODIUM RANDOM URINEon 2021 Sodium (U) [Moles/Vol] 25 mmol/L Critically low 30-90 [facility] Comment on above: Performed By: #### N AU #### [facility] [address] [place] [address] Dr. Pam Young UA RANDOM W/MICROSCOPICon BACTERIA NONE SEEN Normal NONE SEEN [facility] Comment on above: Performed By: #### P SASC #### [facility] [address] [place] [address] Dr. Pam Young Bilirubin Ql (U) Negative Normal NEGATIVE [facility] Comment on above: Performed By: #### P SASC #### [facility] [address] [place] [address] Dr. Pam Young CAST NONE SEEN Normal NONE SEEN [facility] Comment on above: Performed By: #### P SASC #### [facility] [address] [place] [address] Dr. Pam Young Clarity (U) CLEAR Normal CLEAR [facility] Comment on above: Performed By: #### P SASC #### [facility] [address] [place] [address] Dr. Pam Young Color (U) YELLOW Normal YELLOW [facility] Comment on above: Performed By: #### P SASC #### [facility] [address] [address] [address] Pam Young Crystals LM Nom (Urine sed) NONE SEEN Normal NONE SEEN [facility] Comment on above: Performed By: #### P SASC #### [facility] [address] [address] [address] Pam Young Epithelial cells LM Ql (Urine sed) FEW Abnormal NONE SEEN /RARE [facility] Comment on above: Performed By: #### P SASC #### [facility] [address] [address] [address] Pam Young Glucose Ql (U) Negative Normal NEGATIVE [facility] Comment on above: Performed By: #### P SASC #### [facility] [address] [address] [address] Pam Young Hemoglobin Ql (U) TRACE-INTACT Abnormal NEGATIVE [facility] Comment on above: Performed By: #### P SASC #### [facility] [address] [address] [address] Pam Young Ketones Ql (U) 15 mg/dl Abnormal NEGATIVE [facility] Comment on above: Performed By: #### P SASC #### [facility] [address] [address] [address] Pam Young LEUKOCYTES Negative Normal NEGATIVE [facility] Comment on above: Performed By: #### P SASC #### [facility] [address] [address] [address] Pam Young MUCOUS NONE SEEN Normal NONE SEEN [facility] Comment on above: Performed By: #### P SASC #### [facility] [address] [address] [address] Pam Young Nitrite Ql (U) Negative Normal NEGATIVE [facility] Comment on above: Performed By: #### P SASC #### [facility] [address] [address] [address] Pam Young pH (U) 6.0 [pH] Normal 5-9 [facility] Comment on above: Performed By: #### P SASC #### [facility] [address] [address] [address] Pam Young RBC 0-2 Normal 0-2 [facility] Comment on above: Performed By: #### P SASC #### [facility] [address] [place] [address] Dr. Pma Young SPEC GRAVITY 1.020 Normal 1.005-<=1.0 25 [facility] Comment on above: Performed By: #### P SASC #### [facility] [address] [place] [address] Dr. Pam Young UA PROTEIN TRACE Normal NEGATIVE/ TRACE [facility] Comment on above: Performed By: #### P SASC #### [facility] [address] [place] [address] Dr. Pam Young Urobilinogen Qn (U) 0.2 {Tramaine'U}/dL Normal 0.2 - 1.0 [facility] Comment on above: Performed By: #### P SASC #### [facility] [address] [place] [address] Dr. Pam Young WBC NONE SEEN Normal NONE SEEN [facility] Comment on above: Performed By: #### P SASC #### [facility] [address] [place] [address] Dr. Pam Young Physician Referralon 020 Physician Referral [id number]#[id number]:127 Normal [facility] General Surgery Office/Clini c Noteon 04-06-2020 General Surgery Office/Clinic Note Chief Complaint post operative follow up HPI Staff 6 day post operative follow up post EGD and colonoscopy with cecal biopsy. Continues to experience anorexia, bloating and anal leakage. History of Present Illness f/u EGD and colonoscopy; symptoms improved, still with bloating and no appetite; loose stools at times; no emesis; EGD with mild bile reflux and colonoscopy wit prominent vessels in cecum with irritation, no inflammatory changes on biopsy. abd/pelvic ct scan wnl. Review of Systems ROS - Provider Constitutional: no fever, no sweats, no weight loss. Eyes: no glasses, no blurred vision, no visual loss. ENMT: no dentures, no hoarseness, no swallowing difficulties, no hearing loss, no ear infection(s), no nose bleeds. Cardiovascular: normal blood pressure, no chest pain, regular heartbeat, no heart murmur. Respiratory: no shortness of breath, no cough, no asthma, no wheezing. Gastrointestinal: no nausea, no vomiting, no diarrhea, no constipation, no blood in stool, no change in bowel habits, mild abdominal pain, no hepatitis. Genitourinary: no kidney stones, no urine infection, no dysuria. Musculoskeletal: no pain, no weakness. Skin: no changing moles, no rash, no skin lumps. Neurologic: no seizures, no epilepsy, no headache. Psychiatric: no emotional or psychiatric problem. Heme/Lymph: no bleeding problems, no anemia, no blood clots, no transfusions. Allergy/Immunologic: no swollen lymph nodes/glands, no IV drug abuse. Other: Additional ROS info: Except as noted in the above Review of Systems and in the History of Present Illness, all other systems have been reviewed and are negative or noncontributory. Physical Exam Vitals & Measurements T: 36.1 ?C (Tympanic) abd: soft, nontender, nondistended. Assessment/Plan 1. Abnormal weight loss (R63.4: Abnormal weight loss) recommend trial of no dairy products; has bothered him in past; will likely need small bowel evaluation, recommend GI consult for further work up; call with problems/questions. 2. Anorexia (R63.0: Anorexia) see # 1 3. Abdominal bloating (R14.0: Abdominal distension (gaseous)) see # 1 4. Abdominal pain, right upper quadrant (R10.11: Right upper quadrant pain) see # 1 Follow-up No qualifying data available Problem List/Past Medical History Ongoing Abdominal bloating Abdominal pain, right upper quadrant Abnormal weight loss Anorexia BPH (benign prostatic hyperplasia) COPD with emphysema Epigastric pain Erectile dysfunction Family history of pancreatic cancer Hematochezia Multiple nodules of lung Nausea & vomiting Occult blood in stools Osteoporosis Screening for colorectal cancer Smoker Tobacco abuse Historical No qualifying data Procedure/Surgical History Colonoscopy (03/30/2020), EGD - Esophagogastroduodenoscopy (03/30/2020), Colonoscopy normal (02/19/2015), Cervical laminectomy, History of lumbar laminectomy. Medications celecoxib 200 mg Cap, 200 mg= 1 cap(s), Oral, Daily doxazosin 2 mg oral tablet, 2 mg= 1 tab(s), Oral, Daily Protonix 40 mg Tab-DR, 40 mg= 1 tab(s), Oral, Daily Ventolin HFA 90 mcg/inh Aerosol, 2 puff(s), Inhalation, QID, PRN Viagra 100 mg Tab, See Instructions Zofran 4 mg Tab, 4 mg= 1 tab(s), Oral, q6hr, PRN Allergies No Known Allergies No Known Medication Allergies Social History Alcohol - Denies Alcohol Use, 06/10/2019 Substance Abuse - Denies Substance Abuse, 06/10/2019 Tobacco 10 or more cigarettes (1/2 pack or more)/day in last 30 days Tobacco Use:. Cigarettes, 06/10/2019 Family History Pancreatic cancer: Brother. Immunizations Vaccine Date Status influenza virus vaccine, inactivated 05/19/2019 Recorded Normal [facility] Comment on above: Result Comment: Elec tronically Signed By: SHIRIN FINCH, Dallas Pitts\Date and Time Signed: 04/06/20 11:59 EDT Ambulatory Clinical Summaryo n 04-05-2020 Ambulatory Clinical Summary {[id number]}CD:6143 68 Normal [facility] Outside Colonoscopyon 2019 Outside Colonoscopy [id number]:127 Normal [facility] Pathology Noteon 04-04-2020 Pathology Note [id number]#1.00CD:127 Normal [facility] RAD - CT Reporton 04-04-[address] - [address] Report [id number]#1.00CD:127 Normal [facility] Provider Letter FTon 03-31 Provider Letter [facility] [place] Clancy [address] [address] Re: JEREMY GARNERGenny Date of : 1955 Thank you for your referral of Jeremy Schneider who was seen on consultation on 03/24/2020 for abnormal weight loss, nausea, vomiting, bloating and abdominal pain. I have enclosed my consultation notes for your review. Sincerely, Dallas Rossi MD General Surgery [facility] Lab Reportson 03-28-2020 Lab Reports [id number]#[id number]:127 [facility] Pre-Certification Formon Pre-Certification Form [id number]#[id number]:127 [facility] Lab Reportson 03-25-2020 Lab Reports [id number]#1.00CD:127 [facility] Ambulatory Clinical Summaryo n 03-24-2020 Ambulatory Clinical Summary {[id number]}CD:6143 68 [facility] Consent for Procedure/Surger yon 03-24-2020 Consent for Procedure/Surgery [id number]:127 [facility] General Surgery Office/Clini c Noteon 03-24-2020 General Surgery Office/Clinic Note Chief Complaint referral for abd pain with nausea and weight loss HPI Staff 64 year old male presents on consultation from Dr. Clancy for abdominal pain and nausea with 18# weight loss over the past several months. Experiencing decrease in appetite; sense of taste is altered. Intermittent vomiting. Experiencing gas and bloating. Stools are mostly loose and greasy. Abdominal US completed 03/12- unremarkable. Last colonoscopy completed 02/2015 with prominent rectal veins. History of Present Illness 64 yo male with h/o abdominal bloating, poor appetite, anorexia, intermittent nausea/vomiting if he tries to eat anything; loose soft, stools, hematochezia for several weeks, now improved; no fevers, no night sweats or chills; worse over last several months, lost 18 lbs; food has no taste, tries to force food down, frequently comes back up; no dysphagia or early satiety, has been on PPI with no improvement; recent GB US wnl; normal cbc; has chest ct yearly, no changes on last one; no previous abdominal operations; had colonoscopy 5 years ago with mild diverticulosis; no previous EGD; fmhx of pancreatic cancer in patient's brother; no fmhx of colon ca or IBD. on Celebrex daily, no asa; no SBE prophylaxis. smokes 1/2 ppd. Review of Systems PHQ Score Initial Depression Screen Score: 0 ROS - Provider Constitutional: no fever, no sweats, moderate weight loss. Eyes: yes glasses, no blurred vision, no visual loss. ENMT: no dentures, no hoarseness, no swallowing difficulties, no hearing loss, no ear infection(s), no nose bleeds. Cardiovascular: normal blood pressure, no chest pain, regular heartbeat, no heart murmur. Respiratory: no shortness of breath, no cough, no asthma, no wheezing. Gastrointestinal: moderate nausea, moderate vomiting, yes diarrhea, no constipation, yes blood in stool, yes change in bowel habits, mild abdominal pain, no hepatitis. Genitourinary: no kidney stones, no urine infection, no dysuria. Musculoskeletal: no pain, no weakness. Skin: no changing moles, no rash, no skin lumps. Neurologic: no seizures, no epilepsy, no headache. Psychiatric: no emotional or psychiatric problem. Heme/Lymph: no bleeding problems, no anemia, no blood clots, no transfusions. Allergy/Immunologic: no swollen lymph nodes/glands, no IV drug abuse. Other: Additional ROS info: Except as noted in the above Review of Systems and in the History of Present Illness, all other systems have been reviewed and are negative or noncontributory. Physical Exam Vitals & Measurements T: 36.3 ?C (Tympanic) HR: 70(Peripheral) RR: 16 BP: 110/74 HT: 180.34 cm HT: 180.3 cm WT: 68.9 kg WT: 68.9 kg BMI: 21.19 HEENT: normal conjunctiva, sclera clear, no scleral icterus, EOM intact, PERRLA, oral mucosa moist without lesions. Neck: trachea midline, no mass, symmetric, no thyromegaly or nodules, no adenopathy Respiratory: lungs CTA, respirations non labored. Cardiovascular: regular rate and rhythm, no murmur, no pedal edema or varicosities. Gastrointestinal: soft, non distended, mild tenderness, RUQ and epigastrium, no peritoneal signs, no masses, no palpable hernias, diastasis recti no, no hepatosplenomegaly; normal bs Lymphatic: no cervical adenopathy, no axillary adenopathy, no inguinal adenopathy. Musculoskeletal: normal gait, digits and nails without infection, nodes, cyanosis, clubbing. Skin: no rashes, no lesions, no ulcers, no subcutaneous nodules, induration. Psychiatric/Neuro: oriented to time, place, person, judgement normal, affect appropriate for age, insight intact, no focal deficits. Tests: labs reviewed, x-rays reviewed, review of old records completed, Discussed surgical options, risks, and possible complications with patient. Assessment/Plan 1. Abnormal weight loss (R63.4: Abnormal weight loss) unclear etiology; plan EGD and colonoscopy under anesthesia, informed consent obtained; patient understands the risks associated with COVID-19, and the need for preoperative testing with self-isolation until the procedure. will also obtain abd/pelvic ct scan with contrast, with fine cuts through the pancreas; will call patient with results. Ordered: CT Abdomen/Pelvis w/ Contrast 2. Nausea & vomiting (R11.2: Nausea with vomiting, unspecified) see # 1 3. Abdominal bloating (R14.0: Abdominal distension (gaseous)) see # 1 Ordered: CT Abdomen/Pelvis w/ Contrast 4. Epigastric pain (R10.13: Epigastric pain) see # 1 Ordered: CT Abdomen/Pelvis w/ Contrast 5. Abdominal pain, right upper quadrant (R10.11: Right upper quadrant pain) see # 1 Ordered: CT Abdomen/Pelvis w/ Contrast 6. Hematochezia (K92.1: Melena) see # 1 7. Anorexia (R63.0: Anorexia) see # 1 8. Tobacco abuse (Z72.0: Tobacco use) see # 1 9. Family history of pancreatic cancer (Z80.0: Family history of malignant neoplasm of digestive organs) see # 1 Ordered: CT Abdomen/Pelvis w/ Contrast Follow-up No qualifying data available Patient Education Esophagogastroduodenoscopy Problem List/Past Medical History Ongoing Abdominal bloating Abdominal pain, right upper quadrant Abnormal weight loss Anorexia BPH (benign prostatic hyperplasia) COPD with emphysema Epigastric pain Erectile dysfunction Family history of pancreatic cancer Hematochezia Multiple nodules of lung Nausea & vomiting Occult blood in stools Osteoporosis Screening for colorectal cancer Smoker Tobacco abuse Historical No qualifying data Procedure/Surgical History Colonoscopy normal (02/19/2015), Cervical laminectomy, History of lumbar laminectomy. Medications celecoxib 200 mg Cap, 200 mg= 1 cap(s), Oral, Daily doxazosin 2 mg oral tablet, 2 mg= 1 tab(s), Oral, Daily Protonix 40 mg Tab-DR, 40 mg= 1 tab(s), Oral, Daily Ventolin HFA 90 mcg/inh Aerosol, 2 puff(s), Inhalation, QID, PRN Viagra 100 mg Tab, See Instructions Zofran 4 mg Tab, 4 mg= 1 tab(s), Oral, q6hr, PRN Allergies No Known Allergies No Known Medication Allergies Social History Alcohol - Denies Alcohol Use, 06/10/2019 Substance Abuse - Denies Substance Abuse, 06/10/2019 Tobacco 10 or more cigarettes (1/2 pack or more)/day in last 30 days Tobacco Use:. Cigarettes, 06/10/2019 Family History Pancreatic cancer: Brother. Immunizations Vaccine Date Status influenza virus vaccine, inactivated 05/19/2019 Recorded Normal [facility] Comment on above: Result Comment: Elec tronically Signed By: SHIRIN FINCH, [place] Bo.christiane\Date and Time Signed: 03/24/20 10:08 EDT Patient Educationon 03-24-20 20 Patient Education Esophagogastroduoden oscopy Esophagogastroduodenoscopy (EGD) is a procedure to examine the lining of the esophagus, stomach, and first part of the small intestine (duodenum ). A long, flexible, lighted tube with a camera attached (endoscope ) is inserted down the throat to view these organs. This procedure is done to detect problems or abnormalities, such as inflammation, bleeding, ulcers, or growths, in order to treat them. The procedure lasts about 5?20 minutes. It is usually an outpatient procedure, but it may need to be performed in emergency cases in the hospital. LET YOUR CAREGIVER KNOW ABOUT: ? Allergies to food or medicine. ? All medicines you are taking, including vitamins, herbs, eyedrops, and buti-hkj-xnsyfkq medicines and creams. ? Use of steroids (by mouth or creams). ? Previous problems you or members of your family have had with the use of anesthetics. ? Any blood disorders you have. ? Previous surgeries you have had. ? Other health problems you have. ? Possibility of , if this applies. RISKS AND COMPLICATIONS Generally, EGD is a safe procedure. However, as with any procedure, complications can occur. Possible complications include: ? Infection. ? Bleeding. ? Tearing (perforation ) of the esophagus, stomach, or duodenum. ? Difficulty breathing or not being able to breath. ? Excessive sweating. ? Spasms of the larynx. ? Slowed heartbeat. ? Low blood pressure. BEFORE THE PROCEDURE ? Do not eat or drink anything for 6?8 hours before the procedure or as directed by your caregiver. ? Ask your caregiver about changing or stopping your regular medicines. ? If you wear dentures, be prepared to remove them before the procedure. ? Arrange for someone to drive you home after the procedure. PROCEDURE ? A vein will be accessed to give medicines and fluids. A medicine to relax you (sedative ) and a pain reliever will be given through that access into the vein. ? A numbing medicine (local anesthetic ) may be sprayed on your throat for comfort and to stop you from gagging or coughing. ? A mouth guard may be placed in your mouth to protect your teeth and to keep you from biting on the endoscope. ? You will be asked to lie on your left side. ? The endoscope is inserted down your throat and into the esophagus, stomach, and duodenum. ? Air is put through the endoscope to allow your caregiver to view the lining of your esophagus clearly. ? The esophagus, stomach, and duodenum is then examined. During the exam, your caregiver may: ? Remove tissue to be examined under a microscope (biopsy ) for inflammation, infection, or other medical problems. ? Remove growths. ? Remove objects (foreign bodies ) that are stuck. ? Treat any bleeding with medicines or other devices that stop tissues from bleeding (hot cauters, clipping devices ). ? Widen (dilate ) or stretch narrowed areas of the esophagus and stomach. ? The endoscope will then be withdrawn. AFTER THE PROCEDURE ? You will be taken to a recovery area to be monitored. You will be able to go home once you are stable and alert. ? Do not eat or drink anything until the local anesthetic and numbing medicines have worn off. You may choke. ? It is normal to feel bloated, have pain with swallowing, or have a sore throat for a short time. This will wear off. ? Your caregiver should be able to discuss his or her findings with you. It will take longer to discuss the test results if any biopsies were taken. Document Released: 10/25/2005 Document Revised: 06/10/2013 Document Reviewed: 05/27/2013 ExitCare? Patient Information ?2013 [employer]. Normal [facility] Physician Referralon 020 Physician Referral [id number]:127 [facility] RAD - Ultrasound Reporton RAD - Ultrasound Report [id number]:127 [facility] Reminderson 06-10-2019 Reminders - From: Hugo Ferreira To: N - Clinical; Hugo Ferreira; Sent: 06/10/2019 15:06:48 EST Show up: 02/05/2025 15:06:00 EDT Subject: colonoscopy reminder Reminder/Recall Colonoscopy screening reminder 02/[address] [facility] [address] CHEST WO CONTRASTon 11-13 CT CHEST WO CONTRAST [facility] Department of Radiology [address] [place] [id number] Patient Name: JEREMY SCHNEIDER : 1955 Sex: M Age: Race: White Pt. Location: Patient Status: O Ordered Date: 11/11/2017 10:25:00 AM Completed Date: 11/13/2017 07:40 AM Requesting Provider: VIMAL REYNOLDS Attending Provider: VIMAL REYNOLDS Report Copy To: Signs & Symptoms: R91.8 Other nonspecific abnormal finding of lung field I10 History: Chelita approved per [employer] auth# [id number] 11/11/17-01/10/18 cpt code 88944 Comments: Exam: CT CHEST WO CONTRAST CT CHEST WO CONTRAST 11/13/2017 7:40 AM EDT SIGN AND SYMPTOMS: R91.8 Other nonspecific abnormal finding of lung field I10 TECHNOLOGIST COMMENTS: f/u nodule PROTOCOL: Axial CT images of the chest were obtained without IV contrast. TECHNIQUE: Multidetector CT axial slices of the chest were obtained without IV contrast. Multiplanar reformats were performed and viewed on a separate workstation and reviewed to further define anatomy and possible pathology.Appropriate CT dose lowering techniques were utilized. COMPARISON: PET CT 06/20/2017. CT chest 05/31/2017. FINDINGS: Lower neck: Thyroid gland within normal limits, no supraclavicle adenopathy. Vessels: Mild atherosclerotic changes in the aorta and coronary arteries. Mediastinum and Selin: Right high paraesophageal lymph node is unchanged in size. Interval decrease in size of pretracheal lymph node that showed hypermetabolic activity on PET/CT, now measuring 1.6 x 1 cm in axial diameters, previously 2.1 x 1.3 cm. A right hilar lymph nodes have also decreased in size. There are calcified left hilar lymph nodes unchanged. Heart: Normal size. No pericardial effusion. Airways: Within normal limits Lungs: Volume loss of right lung is again noted. Calcified granuloma in left lung apex. Atelectatic changes and scarring in the right lung, not significantly changed from prior PET/CT. Pleura: Interval decrease in size of right pleural effusion since prior CT. Calcific pleural plaques are again noted, similar in extent to prior CT. There are residual areas of irregular pleural thickening. Chest Wall: Within normal limits. Upper Abdomen: Calcified nodules within the spleen consistent with chronic granulomatous disease. Bones: Evidence of prior lower cervical anterior fusion, and T6 changes of kyphoplasty. Mild wedging of T12. Bony spurring in the lower thoracic spine. IMPRESSION: * Interval decrease in size of right pleural effusion. Irregular residual pleural thickening, with unchanged calcific right pleural plaques. * Interval decrease in size of right pretracheal and right hilar lymph nodes. Right paraesophageal lymph node is unchanged in size. * Evidence of chronic granulomatous disease as above. Approved by:Jose Luis Lay on 11/13/2017 9:35 AM EDT. I, Elham Posey, have reviewed the images and report and concur with these findings. Electronically signed by:Elham Posey. Transcribed by: [id number], User Resident: JOSE LUIS LAY Electronically Signed by: ELHAM POSEY @ 11/13/2017 02:51 PM I personally read this/these film(s) with this resident Normal [facility] Encounters Encounter Date Encounter Type Care Provider Facility Start: 07-06-2022 End: 07-07-[address] ORLANDO CLANCY Facility: Start: 06-22-2022 End: 06-23-[address] ORLANDO CLANCY Facility: Start: 09-06-2021 End: 09-07-2021 Evaluation and management of inpatient DR ORLANDO CLANCY Facility: Start: 11-13-2017 End: 11-14-2017 Patient encounter procedure VIMAL REYNOLDS Facility:[facility] Procedures Date Procedure Procedure Detail Performing Clinician Start: 06-22-[address] DIANA CLANCY Comment on above: Performed By: #### P [facility] #### [facility] [address] [place] [address] Dr. Pam Young Payers Date Payer Category Payer Medicare [id number] 1959 Private Health Insurance CLI [id number] 1955 Unknown [id number] 1955 Unknown [id number] 1955 Unknown [id number] [id number] 1955 Unknown [id number] [id number] Unknown [id number] Unknown [id number] Summary Purpose Family History No Family History Records FoundNo Family History Records FoundNo Family History Records Found Advance Directives No Advanced Directives Records FoundNo Advanced Directives Records FoundNo Advanced Directives Records Found Additional Source Comments (unrecognized sect ion and content) No Status Records FoundNo Status Records FoundNo Status Records Found INFORMATION SOURCE (unrecogn ized section and content) DATE CREATED AUTHOR 10/21/2018 [facility] DATE CREATED AUTHOR AUTHOR'S ORGANIZ ATION 04/14/2020 [facility] DATE CREATED AUTHOR AUTHOR'S ORGANIZ ATION 07/09/[address] [facility] FOR RECORDS PERTAINING TO PATIENTS WHO ARE OR HAVE BEEN ENROLLED IN A CHEMICAL DEPENDENCY/SUBSTANCEABUSE PROGRAM, SOME INFORMATION MAY BE OMITTED. This clinical summary was aggregated from multiple sources. Caution should be exercised in using it in the provision of clinical care. This summary normalizes information from multiple sources, and as a consequence, information in this document may materially change the coding, format and clinical context of patient data. In addition, data may be omitted in some cases. CLINICAL DECISIONS SHOULD BE BASED ON THE PRIMARY CLINICAL RECORDS. [facility]. provides no warranty or guarantee of the accuracy or completeness of information in this document.
--- NOTE | 2023-06-28 08:03 | CT_ITS ---
[address] [address] Patient Name: JEREMY SCHNEIDER MRN: [id number] date: 1955 Sex: M Assigned Patient Location: CT Current Patient Location: CT Accession/Order Number: [id number] Exam Date: 06/28/2023 08:15 Report Date: 06/28/2023 16:12 At the request of: ORLANDO BUTCHER Procedure: CT lung screening low-dose EXAMINATION: CT lung screening low-dose HISTORY: copd J44.9 COMPARISON: CT chest 07/06/2022 TECHNIQUE: Axial, Coronal, and Sagittal images were created without the administration of IV contrast material. Dose reduction techniques were achieved by using automated exposure control and/or adjustment of mA and/or kV according to patient size and/or use of iterative reconstruction technique. FINDINGS: LUNGS: Calcified pleural plaques and adjacent stranding/scarring within right lung base. Scattered calcified granulomas bilaterally. Mild to moderate emphysematous changes. PLEURA: No mass, effusion, or pneumothorax. VASCULATURE: No abnormality. LINH: Calcified lymph nodes compatible with chronic granulomatous disease. MEDIASTINUM: No mass or pathologic adenopathy. CARDIAC: No enlargement, pericardial thickening, or significant calcification. AORTA: No aneurysm or dissection. CHEST WALL: No mass or axillary adenopathy BONES: Remote T6 compression fracture with prior vertebroplasty; stable. Stable mild compression fracture of T12. LIMITED ABDOMEN: No suspicious findings. Limited images of the upper abdomen. OTHER: Negative. CT/CT lung screening low-dose IMPRESSION: 1. Lung-RADS 2- Benign Appearance or Behavior. Nodules with a very low likelihood of becoming a clinically active cancer due to size or lack of growth. Follow-up CT Chest in 1 year. 2. Stable chronic granulomas disease. 3. Stable calcified pleural plaques and adjacent scarring. 3. Stable chronic compression fractures. Electronically authenticated by: RICHARD KNOX Date: 06/28/2023 16:12
== END 2023-06-28 08:00 | disposition home or self-care (01) ==
LOC: CT 07:59
PROVIDERS: PCP Family Medicine; Visit Provider Family Medicine
DX: J44.9 Chronic obstructive pulmonary disease, unspecified (principal); F17.211 Nicotine dependence, cigarettes, in remission
CPT/HCPCS: 71271

== ENCOUNTER 2024-06-26 06:33 | Outpatient (OUT) | payer MEDICARE, SELFPAY ==
--- OUTSIDE RECORDS SUMMARY | 2024-06-26 06:35 | XMS_ITS | CCD ---
Author Organization 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 French Cord Name Role Phone VIMAL REYNOLDS Admitting Unavailable VIMAL REYNOLDS Attending Unavailable VIMAL REYNOLDS Referring Unavailable VIMAL REYNOLDS Primary Care Unavailable GUADALUPE, DR PERRY Consulting Unavailable GUADALUPE, DR PERRY Primary Care Unavailable HARESHY, DR PERRY Admitting Unavailable HOY, DR PERRY Attending Unavailable HAY, DR HERRERA Consulting Unavailable RIADALLAS Consulting Unavailable HOY, DR PERRY Consulting Unavailable HARESHY, DR PERRY Primary Care Unavailable GUADALUPE, DR PERRY Admitting Unavailable HARESHY, DR PERRY Attending Unavailable HOY, DR PERRY Consulting Unavailable HARESHY, DR PERRY Primary Care Unavailable HOY, DR PERRY Admitting Unavailable HOY, DR PERRY Attending Unavailable Problems Active Problems Problem Classification Problem Date Documented Date Episodic/Chronic Alcohol-related disorders (1 source) Alcohol abuse, uncomplicated; Translations: [ALCOHOL ABUSE UNCOMPLICATED] Onset: 09-11-2021 Chronic Chronic obstructive pulmonary disease and bronchiectasis (1 source) Chronic obstructive pulmonary disease, unspecified; Translations: [COPD UNSPECIFIED] Onset: 06-27-2022 Chronic Coronary atherosclerosis and other heart disease (1 source) Atherosclerotic heart disease of [place] coronary artery without angina pectoris; Translations: [ATHSCL HEART DISEASE OF [place] CORONARY ARTERY W/O ANG PCTRS] Onset: 11-13-2017 [...] 09-11-2021 Episodic Other aftercare (1 source) Other ferry terminal agent (current) drug therapy; Translations: [OTH LONGTERM CURRENT DRUG THERAPY] Onset: 09-11-2021 Episodic Pancreatic [...] by: JENNIFER CARTER Date: 2022-07-09 11:16 Normal [facility] INSULINon 06-23-2022 Insulin 3.4 uIU/mL Normal 2.6-24.9 [facility] Comment on above: Performed By: #### A MY, CMP, LIPA #### [facility] [address] [address] [address] Pam Young CBC AUTO DIFFon 06-22-2022 BASO # 0.1 103/ul Normal 0.0-0.1 [facility] Comment on above: Performed By: #### C BC #### [facility] [address] [place] [address] Dr. Pam Young Basophils/100 WBC (Bld) 0.8 % Normal 0.2-2.0 [facility] Comment on above: Performed By: #### C BC #### [facility] [address] [place] [address] Dr. Pam Young EO # 0.6 103/ul Normal 0.0-0.7 [facility] Comment on above: Performed By: #### C BC #### [facility] [address] [place] [address] Dr. Pam Young Eosinophils/100 WBC (Bld) 9.0 % Critically high 0.9-7.0 [facility] Comment on above: Performed By: #### C BC #### [facility] [address] [place] [address] Dr. Pam Young Erythrocyte distribution width (RBC) [Ratio] 11.7 % Normal 11.0-15.0 [facility] Comment on above: Performed By: #### C BC #### [facility] [address] [place] [address] Dr. Pam Young Hematocrit (Bld) [Volume fraction] 43.0 % Normal 42.0-54.0 [facility] Comment on above: Performed By: #### C BC #### [facility] [address] [place] [address] Dr. Pam Young Hemoglobin (Bld) [Mass/Vol] 15.5 g/dL Normal 14.0-18.0 [facility] Comment on above: Performed By: #### C BC #### [facility] [address] [place] [address] Dr. Pam Young IG # 0.02 10e3/ul Normal 0.00-0.03 [facility] Comment on above: Performed By: #### C BC #### [facility] [address] [place] [address] Dr. Pam Young IG % 0.3 % Normal 0.0-0.5 [facility] Comment on above: Performed By: #### C BC #### [facility] [address] [place] [address] Dr. Pam Young LYMPH # 1.7 103/ul Normal 1.2-3.8 [facility] Comment on above: Performed By: #### C BC #### [facility] [address] [place] [address] Dr. Pam Young Lymphocytes/100 WBC (Bld) 23.3 % Normal 20.5-60.0 [facility] Comment on above: Performed By: #### C BC #### [facility] [address] [place] [address] Dr. Pam Young MANUAL DIFF REQ NO Normal [facility] Comment on above: Performed By: #### C BC #### [facility] [address] [place] [address] Dr. Pam Young MCH (RBC) [Entitic mass] 36.1 pg Critically high 25.9-34.0 [facility] Comment on above: Performed By: #### C BC #### [facility] [address] [place] [address] Dr. Pam Young MCHC (RBC) [Mass/Vol] 36.0 g/dL Critically high 29.9-35.2 [facility] Comment on above: Performed By: #### C BC #### [facility] [address] [place] [address] Dr. Pam Young MCV (RBC) [Entitic vol] 100.2 fL Critically high 80.0-94.0 [facility] Comment on above: Performed By: #### C BC #### [facility] [address] [place] [address] Dr. Pam Young MONO # 0.8 103/ul Normal 0.3-0.8 [facility] Comment on above: Performed By: #### C BC #### [facility] [address] [place] [address] Dr. Pam Young Monocytes/100 WBC (Bld) 11.1 % Normal 1.7-12.0 [facility] Comment on above: Performed By: #### C BC #### [facility] [address] [place] [address] Dr. Pam Young NEUT # 3.9 103/ul Normal 1.4-6.5 [facility] Comment on above: Performed By: #### C BC #### [facility] [address] [place] [address] Dr. Pam Young Neutrophils/100 WBC (Bld) 55.5 % Normal 43.0-75.0 [facility] Comment on above: Performed By: #### C BC #### [facility] [address] [place] [address] Dr. Pam Young Platelet mean volume (Bld) [Entitic vol] 8.9 fL Critically low 9.5-13.5 [facility] Comment on above: Performed By: #### C BC #### [facility] [address] [place] [address] Dr. Pam Young PLT 279 103/ul Normal 150-450 [facility] Comment on above: Performed By: #### C BC #### [facility] [address] [place] [address] Dr. Pam Young RBC 4.29 106/ul Critically low 4.70-6.10 [facility] Comment on above: Performed By: #### C BC #### [facility] [address] [place] [address] Dr. Pam Young WBC 7.1 103/ul Normal 4.0-11.0 [facility] Comment on above: Performed By: #### C BC #### [facility] [address] [place] [address] Dr. Pam Young GLYCOHEMOGLOBIN A1Con 2021 ADA RECOMMENDATION SEE BELOW Normal [facility] Comment on above: Result Comment: ADA RECOMMENDED LIMIT 4.0 - 6.0 ADA THERAPEUTIC TARGET < 7.0 ACTION SUGGESTED > 7.0 Performed By: #### A 1C #### [facility] [address] [place] [address] Dr. Pam Young Glucose [Mass/Vol] 105 mg/dL Normal [facility] Comment on above: Performed By: #### A 1C #### [facility] [address] [address] [address] Pam Young HbA1c (Bld) [Mass fraction] 5.3 % Normal 4.5-6.2 [facility] Comment on above: Performed By: #### A 1C #### [facility] [address] [place] [address] Dr. Pam Young LIPID PROFILEon 06-22-2022 CHOL-HDL RATIO NORM SEE BELOW Normal [facility] Comment on above: Result Comment: 3.3 - 4.4 LOW RISK 4.4 - 7.1 AVERAGE RISK 7.1 - 11.0 MODERATE RISK >11.0 HIGH RISK Performed By: #### C MP, URIC, LIPID #### [facility] [address] [place] [address] Dr. Pam Young Cholesterol [Mass/Vol] 207 mg/dL Critically high <=200 [facility] Comment on above: Performed By: #### C MP, URIC, LIPID #### [facility] [address] [place] [address] Dr. Pam Young Cholesterol in HDL [Mass/Vol] 72 mg/dL Critically high 40-60 [facility] Comment on above: Performed By: #### C MP, URIC, LIPID #### [facility] [address] [address] [address] Pam Young Cholesterol in LDL [Mass/Vol] 123.6 mg/dL Normal [facility] Comment on above: Performed By: #### C MP, URIC, LIPID #### [facility] [address] [place] [address] Dr. Pam Young Cholesterol.total/ Cholesterol in HDL [Mass ratio] 2.9 {ratio} Normal [facility] Comment on above: Performed By: #### C MP, URIC, LIPID #### [facility] [address] [address] [address] Pam Young HDL NORMAL > or = 60 mg/dl - LO W CARDIOVASCULAR RISK <40 mg/dl - HIGH CARDIOVASCULAR RISK Normal [facility] Comment on above: Performed By: #### C MP, URIC, LIPID #### [facility] [address] [address] [address] Pam Young LDL CALC NORMAL SEE BELOW Normal [facility] Comment on above: Result Comment: <100 mg/dl OPTIMAL 100 - 129 mg/dl NEAR OR ABOVE OPTIMAL 130 - 159 mg/dl BORDERLINE HIGH 160 - 189 mg/dl HIGH >190 mg/dl VERY HIGH Performed By: #### C MP, URIC, LIPID #### [facility] [address] [place] [address] Dr. Pam Young Triglyceride [Mass/Vol] 57 mg/dL Normal <=150 [facility] Comment on above: Performed By: #### C MP, URIC, LIPID #### [facility] [address] [address] [address] Pam Young VLDL CALC 11.4 mg/dL Normal [facility] Comment on above: Performed By: #### C MP, URIC, LIPID #### [facility] [address] [address] [address] Pam Young PROF 14(COMP METB)on 022 Albumin [Mass/Vol] 3.9 g/dL Normal 3.4-5.0 [facility] Comment on above: Performed By: #### C MP, URIC, LIPID #### [facility] [address] [address] [address] Pam Young Albumin/Globulin [Mass ratio] 1.0 {ratio} Normal [facility] Comment on above: Performed By: #### C MP, URIC, LIPID #### [facility] [address] [address] [address] Pam Young ALP [Catalytic activity/Vol] 73 U/L Normal 46-116 [facility] Comment on above: Performed By: #### C MP, URIC, LIPID #### [facility] [address] [address] [address] Pam Young ALT [Catalytic activity/Vol] 17 U/L Normal 16-63 [facility] Comment on above: Performed By: #### C MP, URIC, LIPID #### [facility] [address] [address] [address] Pam Young Anion gap [Moles/Vol] 12.5 mmol/L Normal [facility] Comment on above: Performed By: #### C MP, URIC, LIPID #### [facility] [address] [address] [address] Pam Young AST [Catalytic activity/Vol] 18 U/L Normal 15-37 [facility] Comment on above: Performed By: #### C MP, URIC, LIPID #### [facility] [address] [address] [address] Pam Young Bilirubin [Mass/Vol] 0.6 mg/dL Normal 0.2-1.0 [facility] Comment on above: Performed By: #### C MP, URIC, LIPID #### [facility] [address] [address] [address] Pam Young Calcium [Mass/Vol] 9.0 mg/dL Normal 8.5-10.1 [facility] Comment on above: Performed By: #### C MP, URIC, LIPID #### [facility] [address] [address] [address] Pam Young Chloride [Moles/Vol] 100 mmol/L Normal 98-107 [facility] Comment on above: Performed By: #### C MP, URIC, LIPID #### [facility] [address] [address] [address] Pam Young CO2 [Moles/Vol] 26.2 mmol/L Normal 21.0-32.0 [facility] Comment on above: Performed By: #### C MP, URIC, LIPID #### [facility] [address] [address] [address] Pam Young Creatinine [Mass/Vol] 0.81 mg/dL Normal 0.70-1.30 [facility] Comment on above: Performed By: #### C MP, URIC, LIPID #### [facility] [address] [place] [address] Dr. Pam Young EGFR-AF [place] >60 Normal >=60 [facility] Comment on above: Performed By: #### C MP, URIC, LIPID #### [facility] [address] [address] [address] Pam Young EGFR-NON AF [place] >60 Normal >=60 [facility] Comment on above: Performed By: #### C MP, URIC, LIPID #### [facility] [address] [place] [address] Dr. Pam Young Globulin (S) [Mass/Vol] 3.8 g/dL Normal [facility] Comment on above: Performed By: #### C MP, URIC, LIPID #### [facility] [address] [place] [address] Dr. Pam Young Glucose [Mass/Vol] 94 mg/dL Normal 74-106 [facility] Comment on above: Performed By: #### C MP, URIC, LIPID #### [facility] [address] [place] [address] Dr. Pam Young Potassium [Moles/Vol] 4.7 mmol/L Normal 3.5-5.1 [facility] Comment on above: Performed By: #### C MP, URIC, LIPID #### [facility] [address] [place] [address] Dr. Pam Young Protein [Mass/Vol] 7.7 g/dL Normal 6.4-8.2 [facility] Comment on above: Performed By: #### C MP, URIC, LIPID #### [facility] [address] [place] [address] Dr. Pam Young Sodium [Moles/Vol] 134 mmol/L Critically low 136-145 [facility] Comment on above: Performed By: #### C MP, URIC, LIPID #### [facility] [address] [place] [address] Dr. Pam Young Urea nitrogen [Mass/Vol] 10.0 mg/dL Normal 7.0-18.0 [facility] Comment on above: Performed By: #### C MP, URIC, LIPID #### [facility] [address] [place] [address] Dr. Pam Young Urea nitrogen/Creatinin e [Mass ratio] 12.3 mg/mg Normal [facility] Comment on above: Performed By: #### C MP, URIC, LIPID #### [facility] [address] [address] [address] Pam Young URIC ACID SERUMon 06-22-2022 Urate [Mass/Vol] 6.0 mg/dL Normal 3.5-7.2 [facility] Comment on above: Performed By: #### C MP, URIC, LIPID #### [facility] [address] [place] [address] Dr. Pam Young AMYLASEon 09-07-2021 Amylase [Catalytic activity/Vol] 123 U/L Critically high 31-110 [facility] Comment on above: Performed By: #### A MY, CMP, LIPA #### [facility] [address] [place] [address] Dr. Pam Young CBC AUTO DIFFon 09-07-2021 BASO # 0.0 103/ul Normal 0.0-0.1 [facility] Comment on above: Performed By: #### A MY, CMP, LIPA #### [facility] [address] [place] [address] Dr. Pam Young Basophils/100 WBC (Bld) 0.3 % Normal 0.2-2.0 [facility] Comment on above: Performed By: #### A MY, CMP, LIPA #### [facility] [address] [place] [address] Dr. Pam Young EO # 0.1 103/ul Normal 0.0-0.7 [facility] Comment on above: Performed By: #### A MY, CMP, LIPA #### [facility] [address] [place] [address] Dr. Pam Young Eosinophils/100 WBC (Bld) 1.3 % Normal 0.9-7.0 [facility] Comment on above: Performed By: #### A MY, CMP, LIPA #### [facility] [address] [place] [address] Dr. Pam Young Erythrocyte distribution width (RBC) [Ratio] 11.9 % Normal 11.0-15.0 [facility] Comment on above: Performed By: #### A MY, CMP, LIPA #### [facility] [address] [place] [address] Dr. Pam Young Hematocrit (Bld) [Volume fraction] 37.3 % Critically low 42.0-54.0 [facility] Comment on above: Performed By: #### A MY, CMP, LIPA #### [facility] [address] [place] [address] Dr. Pam Young Hemoglobin (Bld) [Mass/Vol] 12.4 g/dL Critically low 14.0-18.0 [facility] Comment on above: Performed By: #### A MY, CMP, LIPA #### [facility] [address] [place] [address] Dr. Pam Young IG # 0.05 10e3/ul Critically high 0.00-0.03 [facility] Comment on above: Performed By: #### A MY, CMP, LIPA #### [facility] [address] [place] [address] Dr. Pam Young IG % 0.5 % Normal 0.0-0.5 [facility] Comment on above: Performed By: #### A MY, CMP, LIPA #### [facility] [address] [place] [address] Dr. Pam Young LYMPH # 0.8 103/ul Critically low 1.2-3.8 [facility] Comment on above: Performed By: #### A MY, CMP, LIPA #### [facility] [address] [place] [address] Dr. Pam Young Lymphocytes/100 WBC (Bld) 8.0 % Critically low 20.5-60.0 [facility] Comment on above: Performed By: #### A MY, CMP, LIPA #### [facility] [address] [address] [address] Pam Young MANUAL DIFF REQ NO Normal [facility] Comment on above: Performed By: #### A MY, CMP, LIPA #### [facility] [address] [place] [address] Dr. Pam Young MCH (RBC) [Entitic mass] 34.6 pg Critically high 25.9-34.0 [facility] Comment on above: Performed By: #### A MY, CMP, LIPA #### [facility] [address] [address] [address] Pam Young MCHC (RBC) [Mass/Vol] 33.2 g/dL Normal 29.9-35.2 [facility] Comment on above: Performed By: #### A MY, CMP, LIPA #### [facility] [address] [place] [address] Dr. Pam Young MCV (RBC) [Entitic vol] 104.2 fL Critically high 80.0-94.0 [facility] Comment on above: Performed By: #### A MY, CMP, LIPA #### [facility] [address] [address] [address] Pam Young MONO # 0.9 103/ul Critically high 0.3-0.8 [facility] Comment on above: Performed By: #### A MY, CMP, LIPA #### [facility] [address] [place] [address] Dr. Pam Young Monocytes/100 WBC (Bld) 8.9 % Normal 1.7-12.0 [facility] Comment on above: Performed By: #### A MY, CMP, LIPA #### [facility] [address] [place] [address] Dr. Pam Young NEUT # 8.3 103/ul Critically high 1.4-6.5 [facility] Comment on above: Performed By: #### A MY, CMP, LIPA #### [facility] [address] [place] [address] Dr. Pam Young Neutrophils/100 WBC (Bld) 81.0 % Critically high 43.0-75.0 [facility] Comment on above: Performed By: #### A KIMBERLY CMP, LIPA #### [facility] [address] [place] [address] Dr. Pam Young Platelet mean volume (Bld) [Entitic vol] 9.1 fL Critically low 9.5-13.5 [facility] Comment on above: Performed By: #### A MY CMP, LIPA #### [facility] [address] [place] [address] Dr. Pam Young PLT 230 103/ul Normal 150-450 [facility] Comment on above: Performed By: #### A KIMBERLY CMP, LIPA #### [facility] [address] [place] [address] Dr. Pam Young RBC 3.58 106/ul Critically low 4.70-6.10 [facility] Comment on above: Performed By: #### A KIMBERLY CMP, LIPA #### [facility] [address] [place] [address] Dr. Pam Young WBC 10.2 103/ul Normal 4.0-11.0 [facility] Comment on above: Performed By: #### A KIMBERLY CMP, LIPA #### [facility] [address] [place] [address] Dr. Pam Young LIPASEon 09-07-2021 Lipase [Catalytic activity/Vol] 442.0 U/L Critically high 23.0-300.0 [facility] Comment on above: Performed By: #### A KIMBERLY CMP, LIPA #### [facility] [address] [place] [address] Dr. Pam Young OSMOLALITYon 09-07-2021 Osmolality [Osmolality] 266 mosm/kg Critically low 280-301 [facility] Comment on above: Performed By: #### A KIMBERLY CMP, LIPA #### [facility] [address] [place] [address] Dr. Pam Young PROF 14(COMP METB)on 022 Albumin [Mass/Vol] 3.1 g/dL Critically low 3.5-5.0 [facility] Comment on above: Performed By: #### A MY, CMP, LIPA #### [facility] [address] [place] [address] Dr. Pam Young Albumin/Globulin [Mass ratio] 0.9 {ratio} Normal [facility] Comment on above: Performed By: #### A MY, CMP, LIPA #### [facility] [address] [place] [address] Dr. Pam Young ALP [Catalytic activity/Vol] 82 U/L Normal 38-126 [facility] Comment on above: Performed By: #### A MY, CMP, LIPA #### [facility] [address] [place] [address] Dr. Pam Young ALT [Catalytic activity/Vol] 19 U/L Critically low 21-72 [facility] Comment on above: Performed By: #### A MY, CMP, LIPA #### [facility] [address] [place] [address] Dr. Pam Young Anion gap [Moles/Vol] 11.5 mmol/L Normal [facility] Comment on above: Performed By: #### A MY, CMP, LIPA #### [facility] [address] [place] [address] Dr. Pam Young AST [Catalytic activity/Vol] 24 U/L Normal 17-59 [facility] Comment on above: Performed By: #### A MY, CMP, LIPA #### [facility] [address] [place] [address] Dr. Pam Young Bilirubin [Mass/Vol] 1.1 mg/dL Normal 0.2-1.3 [facility] Comment on above: Performed By: #### A MY, CMP, LIPA #### [facility] [address] [place] [address] Dr. Pam Young Calcium [Mass/Vol] 8.2 mg/dL Critically low 8.4-10.2 [facility] Comment on above: Performed By: #### A MY, CMP, LIPA #### [facility] [address] [place] [address] Dr. Pam Young Chloride [Moles/Vol] 102 mmol/L Normal 98-107 [facility] Comment on above: Performed By: #### A MY, CMP, LIPA #### [facility] [address] [address] [address] Pam Young CO2 [Moles/Vol] 24.0 mmol/L Normal 22.0-30.0 [facility] Comment on above: Performed By: #### A MY, CMP, LIPA #### [facility] [address] [address] [address] Pam Young Creatinine [Mass/Vol] 0.86 mg/dL Normal 0.66-1.25 [facility] Comment on above: Performed By: #### A MY, CMP, LIPA #### [facility] [address] [address] [address] Pam Young EGFR-AF [place] >60 Normal >=60 [facility] Comment on above: Performed By: #### A MY, CMP, LIPA #### [facility] [address] [place] [address] Dr. Pam Young EGFR-NON AF [place] >60 Normal >=60 [facility] Comment on above: Performed By: #### A MY, CMP, LIPA #### [facility] [address] [address] [address] Pam Young Globulin (S) [Mass/Vol] 3.5 g/dL Normal [facility] Comment on above: Performed By: #### A MY, CMP, LIPA #### [facility] [address] [address] [address] Pam Young Glucose [Mass/Vol] 100 mg/dL Normal 74-[address] [facility] [facility] Comment on above: Performed By: #### A MY, CMP, LIPA #### [facility] [address] [address] [address] Pam Young Potassium [Moles/Vol] 3.5 mmol/L Normal 3.4-5.0 [facility] Comment on above: Performed By: #### A MY, CMP, LIPA #### [facility] [address] [address] [address] Pam Young Protein [Mass/Vol] 6.6 g/dL Normal 6.1-8.2 [facility] Comment on above: Performed By: #### A MY, CMP, LIPA #### [facility] [address] [address] [address] Pam Young Sodium [Moles/Vol] 134 mmol/L Critically low 137-145 Th [facility] Comment on above: Performed By: #### A MY, CMP, LIPA #### [facility] [address] [place] [address] Dr. Pam Young Urea nitrogen [Mass/Vol] 10.0 mg/dL Normal 9.0-20.0 [facility] Comment on above: Performed By: #### A MY, CMP, LIPA #### [facility] [address] [place] [address] Dr. Pam Young Urea nitrogen/Creatinin e [Mass ratio] 11.6 mg/mg Normal [facility] Comment on above: Performed By: #### A MY, CMP, LIPA #### [facility] [address] [place] [address] Dr. Pam Young AMMONIAon 09-06-2021 Ammonia (P) [Mass/Vol] ug/dL Critically low 10-30 [facility] Comment on above: Performed By: #### P SASC #### [facility] [address] [place] [address] Dr. Pam Young AMYLASEon 09-06-2021 Amylase [Catalytic activity/Vol] 365 U/L Critically high 31-110 [facility] Comment on above: Result Comment: TEST REPEATED. CRITICAL VALUE VERIFIED Performed By: #### A MY, CMP, LIPA #### [facility] [address] [place] [address] Dr. Pam Young CBC AUTO DIFFon 09-06-2021 BASO # 0.0 103/ul Normal 0.0-0.1 [facility] Comment on above: Performed By: #### A MY, CMP, LIPA #### [facility] [address] [place] [address] Dr. Pam Young Basophils/100 WBC (Bld) 0.2 % Normal 0.2-2.0 [facility] Comment on above: Performed By: #### A MY, CMP, LIPA #### [facility] [address] [place] [address] Dr. Pam Young EO # 0.1 103/ul Normal 0.0-0.7 [facility] Comment on above: Performed By: #### A MY, CMP, LIPA #### [facility] [address] [place] [address] Dr. Pam Young Eosinophils/100 WBC (Bld) 0.7 % Critically low 0.9-7.0 [facility] Comment on above: Performed By: #### A MY, CMP, LIPA #### [facility] [address] [place] [address] Dr. Pam Young Erythrocyte distribution width (RBC) [Ratio] 11.8 % Normal 11.0-15.0 [facility] Comment on above: Performed By: #### A MY, CMP, LIPA #### [facility] [address] [place] [address] Dr. Pam Young Hematocrit (Bld) [Volume fraction] 38.1 % Critically low 42.0-54.0 [facility] Comment on above: Performed By: #### A MY, CMP, LIPA #### [facility] [address] [place] [address] Dr. Pam Young Hemoglobin (Bld) [Mass/Vol] 13.0 g/dL Critically low 14.0-18.0 [facility] Comment on above: Result Comment: Flui ds given Performed By: #### A MY, CMP, LIPA #### [facility] [address] [place] [address] Dr. Pam Young IG # 0.05 10e3/ul Critically high 0.00-0.03 [facility] Comment on above: Performed By: #### A MY, CMP, LIPA #### [facility] [address] [place] [address] Dr. Pam Young IG % 0.5 % Normal 0.0-0.5 [facility] Comment on above: Performed By: #### A MY, CMP, LIPA #### [facility] [address] [place] [address] Dr. Pam Young LYMPH # 0.9 103/ul Critically low 1.2-3.8 [facility] Comment on above: Performed By: #### A MY, CMP, LIPA #### [facility] [address] [place] [address] Dr. Pam Young Lymphocytes/100 WBC (Bld) 9.0 % Critically low 20.5-60.0 [facility] Comment on above: Performed By: #### A MY, CMP, LIPA #### [facility] [address] [place] [address] Dr. aPm Young MANUAL DIFF REQ NO Normal [facility] Comment on above: Performed By: #### A MY, CMP, LIPA #### [facility] [address] [place] [address] Dr. Pam Young MCH (RBC) [Entitic mass] 34.9 pg Critically high 25.9-34.0 [facility] Comment on above: Performed By: #### A MY, CMP, LIPA #### [facility] [address] [place] [address] Dr. Pam Young MCHC (RBC) [Mass/Vol] 34.1 g/dL Normal 29.9-35.2 [facility] Comment on above: Performed By: #### A MY, CMP, LIPA #### [facility] [address] [place] [address] Dr. Pam Young MCV (RBC) [Entitic vol] 102.1 fL Critically high 80.0-94.0 [facility] Comment on above: Performed By: #### A MY, CMP, LIPA #### [facility] [address] [place] [address] Dr. Pam Young MONO # 0.9 103/ul Critically high 0.3-0.8 [facility] Comment on above: Performed By: #### A MY, CMP, LIPA #### [facility] [address] [address] [address] Pam Young Monocytes/100 WBC (Bld) 8.6 % Normal 1.7-12.0 [facility] Comment on above: Performed By: #### A MY, CMP, LIPA #### [facility] [address] [place] [address] Dr. Pam Young NEUT # 8.2 103/ul Critically high 1.4-6.5 [facility] Comment on above: Performed By: #### A MY, CMP, LIPA #### [facility] [address] [place] [address] Dr. Pam Young Neutrophils/100 WBC (Bld) 81.0 % Critically high 43.0-75.0 [facility] Comment on above: Performed By: #### A MY, CMP, LIPA #### [facility] [address] [place] [address] Dr. Pam Young Platelet mean volume (Bld) [Entitic vol] 8.8 fL Critically low 9.5-13.5 [facility] Comment on above: Performed By: #### A MY, CMP, LIPA #### [facility] [address] [place] [address] Dr. Pam Young PLT 222 103/ul Normal 150-450 [facility] Comment on above: Performed By: #### A MY, CMP, LIPA #### [facility] [address] [place] [address] Dr. Pam Young RBC 3.73 106/ul Critically low 4.70-6.10 [facility] Comment on above: Performed By: #### A MY, CMP, LIPA #### [facility] [address] [place] [address] Dr. Pam Young WBC 10.2 103/ul Normal 4.0-11.0 [facility] Comment on above: Performed By: #### A MY, CMP, LIPA #### [facility] [address] [place] [address] Dr. Pam Young LIPASEon 09-06-2021 Lipase [Catalytic activity/Vol] 1485.0 U/L Critically high 23.0-300.0 [facility] Comment on above: Result Comment: TEST REPEATED. CRITICAL VALUE VERIFIED Performed By: #### A MY, CMP, LIPA #### [facility] [address] [address] [address] Pam Young PROF 14(COMP METB)on 022 Albumin [Mass/Vol] 3.2 g/dL Critically low 3.5-5.0 Th e [facility] Comment on above: Performed By: #### A MY, CMP, LIPA #### [facility] [address] [address] [address] Pam Young Albumin/Globulin [Mass ratio] 1.0 {ratio} Normal [facility] Comment on above: Performed By: #### A MY, CMP, LIPA #### [facility] [address] [address] [address] Pam Young ALP [Catalytic activity/Vol] 70 U/L Normal 38-126 [facility] Comment on above: Performed By: #### A MY, CMP, LIPA #### [facility] [address] [address] [address] Pam Young ALT [Catalytic activity/Vol] 21 U/L Normal 21-72 [facility] Comment on above: Performed By: #### A MY, CMP, LIPA #### [facility] [address] [address] [address] Pam Young Anion gap [Moles/Vol] 10.7 mmol/L Normal [facility] Comment on above: Performed By: #### A MY, CMP, LIPA #### [facility] [address] [address] [address] Pam Young AST [Catalytic activity/Vol] 22 U/L Normal 17-59 [facility] Comment on above: Performed By: #### A MY, CMP, LIPA #### [facility] [address] [address] [address] Pam Young Bilirubin [Mass/Vol] 1.3 mg/dL Normal 0.2-1.3 [facility] Comment on above: Performed By: #### A MY, CMP, LIPA #### [facility] [address] [address] [address] Pam Young Calcium [Mass/Vol] 8.3 mg/dL Critically low 8.4-10.2 Th e [facility] Comment on above: Performed By: #### A MY, CMP, LIPA #### [facility] [address] [address] [address] Pam Young Chloride [Moles/Vol] 100 mmol/L Normal 98-107 [facility] Comment on above: Performed By: #### A MY, CMP, LIPA #### [facility] [address] [place] [address] Dr. Pam Young CO2 [Moles/Vol] 25.0 mmol/L Normal 22.0-30.0 [facility] Comment on above: Performed By: #### A MY, CMP, LIPA #### [facility] [address] [place] [address] Dr. Pam Young Creatinine [Mass/Vol] 0.97 mg/dL Normal 0.66-1.25 [facility] Comment on above: Performed By: #### A MY, CMP, LIPA #### [facility] [address] [place] [address] Dr. Pam Young EGFR-AF CAPE VERDEAN >60 Normal >=60 [facility] Comment on above: Performed By: #### A MY, CMP, LIPA #### [facility] [address] [place] [address] Dr. Pam Young EGFR-NON AF CAPE VERDEAN >60 Normal >=60 [facility] Comment on above: Performed By: #### A MY, CMP, LIPA #### [facility] [address] [place] [address] Dr. Pam Young Globulin (S) [Mass/Vol] 3.1 g/dL Normal [facility] Comment on above: Performed By: #### A MY, CMP, LIPA #### [facility] [address] [place] [address] Dr. Pam Young Glucose [Mass/Vol] 109 mg/dL Critically high 74-106 [facility] Comment on above: Performed By: #### A MY, CMP, LIPA #### [facility] [address] [place] [address] Dr. Pam Young Potassium [Moles/Vol] 3.7 mmol/L Normal 3.4-5.0 [facility] Comment on above: Performed By: #### A MY, CMP, LIPA #### [facility] [address] [address] [address] Pam Young Protein [Mass/Vol] 6.3 g/dL Normal 6.1-8.2 [facility] Comment on above: Performed By: #### A MY, CMP, LIPA #### [facility] [address] [place] [address] Dr. Pam Young Sodium [Moles/Vol] 132 mmol/L Critically low 137-145 Th [facility] Comment on above: Performed By: #### A MY, CMP, LIPA #### [facility] [address] [place] [address] Dr. Pam Young Urea nitrogen [Mass/Vol] 10.0 mg/dL Normal 9.0-20.0 [facility] Comment on above: Performed By: #### A MY, CMP, LIPA #### [facility] [address] [place] [address] Dr. Pam Young Urea nitrogen/Creatinin e [Mass ratio] 10.3 mg/mg Normal [facility] Comment on above: Performed By: #### A MY, CMP, LIPA #### [facility] [address] [place] [address] Dr. Pam Young AMYLASEon 09-05-2021 Amylase [Catalytic activity/Vol] 904 U/L Critically high 31-110 [facility] Comment on above: Result Comment: TEST REPEATED CRITICAL VALUE VERIFIED Performed By: #### P SASC #### [facility] [address] [place] [address] Dr. Pam Young BILIRUBIN CONJUGATED (DIRECT )on 09-05-2021 BILI, CONJUGATED 0.3 mg/dL Normal 0.0-0.3 [facility] Comment on above: Performed By: #### P SASC #### [facility] [address] [place] [address] Dr. Pam Young CBC AUTO DIFFon 09-05-2021 BASO # 0.0 103/ul Normal 0.0-0.1 [facility] Comment on above: Performed By: #### P SASC #### [facility] [address] [place] [address] Dr. Pam Young Basophils/100 WBC (Bld) 0.2 % Normal 0.2-2.0 [facility] Comment on above: Performed By: #### P SASC #### [facility] [address] [place] [address] Dr. Pam Young EO # 0.0 103/ul Normal 0.0-0.7 [facility] Comment on above: Performed By: #### P SASC #### [facility] [address] [place] [address] Dr. Pam Young Eosinophils/100 WBC (Bld) 0.3 % Critically low 0.9-7.0 [facility] Comment on above: Performed By: #### P SASC #### [facility] [address] [place] [address] Dr. Pam Young Erythrocyte distribution width (RBC) [Ratio] 11.4 % Normal 11.0-15.0 [facility] Comment on above: Performed By: #### P SASC #### [facility] [address] [place] [address] Dr. Pam Young Hematocrit (Bld) [Volume fraction] 42.4 % Normal 42.0-54.0 [facility] Comment on above: Performed By: #### P SASC #### [facility] [address] [place] [address] Dr. Pam Young Hemoglobin (Bld) [Mass/Vol] 15.3 g/dL Normal 14.0-18.0 [facility] Comment on above: Performed By: #### P SASC #### [facility] [address] [place] [address] Dr. Pam Young IG # 0.08 10e3/ul Critically high 0.00-0.03 [facility] Comment on above: Performed By: #### P SASC #### [facility] [address] [address] [address] Pam Young IG % 0.5 % Normal 0.0-0.5 [facility] Comment on above: Performed By: #### P SASC #### [facility] [address] [address] [address] Pam Young LYMPH # 0.6 103/ul Critically low 1.2-3.8 [facility] Comment on above: Performed By: #### P SASC #### [facility] [address] [address] [address] Pam Young Lymphocytes/100 WBC (Bld) 3.9 % Critically low 20.5-60.0 [facility] Comment on above: Performed By: #### P SASC #### [facility] [address] [address] [address] Pam Young MANUAL DIFF REQ NO Normal [facility] Comment on above: Performed By: #### P SASC #### [facility] [address] [address] [address] Pam Young MCH (RBC) [Entitic mass] 35.5 pg Critically high 25.9-34.0 [facility] Comment on above: Performed By: #### P SASC #### [facility] [address] [address] [address] Pam Young MCHC (RBC) [Mass/Vol] 36.1 g/dL Critically high 29.9-35.2 [facility] Comment on above: Performed By: #### P SASC #### [facility] [address] [address] [address] Pam Young MCV (RBC) [Entitic vol] 98.4 fL Critically high 80.0-94.0 [facility] Comment on above: Performed By: #### P SASC #### [facility] [address] [address] [address] Pam Young MONO # 1.0 103/ul Critically high 0.3-0.8 [facility] Comment on above: Performed By: #### P SASC #### [facility] [address] [place] [address] Dr. Pam Young Monocytes/100 WBC (Bld) 6.5 % Normal 1.7-12.0 [facility] Comment on above: Performed By: #### P SASC #### [facility] [address] [address] [address] Pam Young NEUT # 13.5 103/ul Critically high 1.4-6.5 [facility] Comment on above: Performed By: #### P SASC #### [facility] [address] [place] [address] Dr. Pam Young Neutrophils/100 WBC (Bld) 88.6 % Critically high 43.0-75.0 [facility] Comment on above: Performed By: #### P SASC #### [facility] [address] [place] [address] Dr. Pam Young Platelet mean volume (Bld) [Entitic vol] 8.9 fL Critically low 9.5-13.5 [facility] Comment on above: Performed By: #### P SASC #### [facility] [address] [place] [address] Dr. Pam Young PLT 269 103/ul Normal 150-450 [facility] Comment on above: Performed By: #### P SASC #### [facility] [address] [place] [address] Dr. Pam Young RBC 4.31 106/ul Critically low 4.70-6.10 [facility] Comment on above: Performed By: #### P SASC #### [facility] [address] [place] [address] Dr. Pam Young WBC 15.2 103/ul Critically high 4.0-11.0 [facility] Comment on above: Performed By: #### P SASC #### [facility] [address] [place] [address] ABD/PELV W CONon [...] [place] Date: 2021-09-05 10:22 Normal [facility] Covid-19 PCR (CVDTB)on SARS-CoV-2 (COVID-19) RNA CORNELL+probe Ql (Unsp spec) Not detected Normal NOT DETECTED [facility] Comment on above: Result Comment: When diagnostic testing is negative, the possibility of a false negative should be considered in the context of a patient's recent exposures and the presence of clinical signs and symptoms consistent with SARS-CoV-2. This test is not yet approved or cleared by the [place] Food and Drug Administration (FDA). This test was developed by [employer], [place], [place]. The performance characteristics of this test were validated by The [facility]. The results are not intended to be used as the sole means for clinical diagnosis or patient management decisions. The [facility] is authorized under Clinical Laboratory Improvement Amendments [...] for this test is supported by the Hr Operations Advisor of Health and Human Service's declaration that [...] used). Performed By: #### P SASC #### [facility] [address] [place] [address] Dr. Pam Yuong LACTATE/LACTIC ACIDon 2021 Lactate [Moles/Vol] 1.1 mmol/L Normal 0.7-2.0 [facility] Comment on above: Performed By: #### A MY, CMP, LIPA #### [facility] [address] [place] [address] Dr. Pam Young Lactate [Moles/Vol] 1.2 mmol/L Normal 0.7-2.0 [facility] Comment on above: Performed By: #### P SASC #### [facility] [address] [place] [address] Dr. Pam Young LIPASEon 09-05-2021 Lipase [Catalytic activity/Vol] U/L Critically high 23.0-300.0 [facility] Comment on above: Result Comment: TEST REPEATED CRITICAL VALUE VERIIFIED Performed By: #### P SASC #### [facility] [address] [place] [address] Dr. Pam Young PROF 14(COMP METB)on 022 Albumin [Mass/Vol] 4.2 g/dL Normal 3.5-5.0 [facility] Comment on above: Performed By: #### P SASC #### [facility] [address] [place] [address] Dr. Pam Young Albumin/Globulin [Mass ratio] 1.1 {ratio} Normal [facility] Comment on above: Performed By: #### P SASC #### [facility] [address] [address] [address] Pam Young ALP [Catalytic activity/Vol] 87 U/L Normal 38-126 [facility] Comment on above: Performed By: #### P SASC #### [facility] [address] [address] [address] Pam Young ALT [Catalytic activity/Vol] 32 U/L Normal 21-72 [facility] Comment on above: Performed By: #### P SASC #### [facility] [address] [address] [address] Pam Young Anion gap [Moles/Vol] 14.4 mmol/L Normal [facility] Comment on above: Performed By: #### P SASC #### [facility] [address] [address] [address] Pam Young AST [Catalytic activity/Vol] 33 U/L Normal 17-59 [facility] Comment on above: Result Comment: SPEC IMEN SLIGHTLY LIPEMIC MAY AFFECT K+ AND AST Performed By: #### P SASC #### [facility] [address] [address] [address] Pam Young Bilirubin [Mass/Vol] 1.8 mg/dL Critically high 0.2-1.3 [facility] Comment on above: Performed By: #### P SASC #### [facility] [address] [address] [address] Pam Young Calcium [Mass/Vol] 8.6 mg/dL Normal 8.4-10.[address] [facility] Comment on above: Performed By: #### P SASC #### [facility] [address] [address] [address] Pam Young Chloride [Moles/Vol] 90 mmol/L Critically low 98-107 [facility] Comment on above: Performed By: #### P SASC #### [facility] [address] [address] [address] Pam Young CO2 [Moles/Vol] 21.7 mmol/L Critically low 22.0-30.0 [facility] Comment on above: Performed By: #### P SASC #### [facility] [address] [address] [address] Pam Young Creatinine [Mass/Vol] 0.73 mg/dL Normal 0.66-1.25 [facility] Comment on above: Performed By: #### P SASC #### [facility] [address] [address] [address] Pam Young EGFR-AF CAPE VERDEAN >60 Normal >=60 [facility] Comment on above: Performed By: #### P SASC #### [facility] [address] [address] [address] Pam Young EGFR-NON AF CAPE VERDEAN >60 Normal >=60 [facility] Comment on above: Performed By: #### P SASC #### [facility] [address] [address] [address] Pam Young Globulin (S) [Mass/Vol] 3.7 g/dL Normal [facility] Comment on above: Performed By: #### P SASC #### [facility] [address] [address] [address] Pam Young Glucose [Mass/Vol] 108 mg/dL Critically high 74-106 [facility] Comment on above: Performed By: #### P SASC #### [facility] [address] [address] [address] Pam Young Potassium [Moles/Vol] 4.1 mmol/L Normal 3.4-5.0 [facility] Comment on above: Result Comment: SPEC IMEN SLIGHTLY LIPEMIC MAY AFFECT K+ AND AST Performed By: #### P SASC #### [facility] [address] [address] [address] Pam Young Protein [Mass/Vol] 7.9 g/dL Normal 6.1-8.2 [facility] Comment on above: Performed By: #### P SASC #### [facility] [address] [address] [address] Pam Young Sodium [Moles/Vol] 122 mmol/L Critically low 137-145 [facility] Comment on above: Result Comment: TEST REPEATED CRITICAL VALUE VERIFIED Performed By: #### P SASC #### [facility] [address] [place] [address] Dr. Pam Young Urea nitrogen [Mass/Vol] 8.0 mg/dL Critically low 9.0-20.0 [facility] Comment on above: Performed By: #### P SASC #### [facility] [address] [place] [address] Dr. Pam Young Urea nitrogen/Creatinin e [Mass ratio] 11.0 mg/mg Normal [facility] Comment on above: Performed By: #### P SASC #### [facility] [address] [place] [address] Dr. Pam Young SODIUM RANDOM URINEon 2021 Sodium (U) [Moles/Vol] 25 mmol/L Critically low 30-90 [facility] Comment on above: Performed By: #### N AU #### [facility] [address] [place] [address] Dr. Pam Young UA RANDOM W/MICROSCOPICon BACTERIA NONE SEEN Normal NONE SEEN [facility] Comment on above: Performed By: #### P SASC #### [facility] [address] [place] [address] Dr. Pam Young Bilirubin Ql (U) Negative Normal NEGATIVE [facility] Comment on above: Performed By: #### P SASC #### [facility] [address] [place] [address] Dr. Pam Young CAST NONE SEEN Normal NONE SEEN [facility] Comment on above: Performed By: #### P SASC #### [facility] [address] [place] [address] Dr. Pam Young Clarity (U) CLEAR Normal CLEAR [facility] Comment on above: Performed By: #### P SASC #### [facility] [address] [place] [address] Dr. Pam Young Color (U) YELLOW Normal YELLOW [facility] Comment on above: Performed By: #### P SASC #### [facility] [address] [address] [address] Pam Young Crystals LM Nom (Urine sed) NONE SEEN Normal NONE SEEN [facility] Comment on above: Performed By: #### P SASC #### [facility] [address] [place] [address] Dr. Pam Young Epithelial cells LM Ql (Urine sed) FEW Abnormal NONE SEEN /RARE [facility] Comment on above: Performed By: #### P SASC #### [facility] [address] [address] [address] Pam Young Glucose Ql (U) Negative Normal NEGATIVE [facility] Comment on above: Performed By: #### P SASC #### [facility] [address] [place] [address] Dr. Pam Young Hemoglobin Ql (U) TRACE-INTACT Abnormal NEGATIVE [facility] Comment on above: Performed By: #### P SASC #### [facility] [address] [place] [address] Dr. Pam Young Ketones Ql (U) 15 mg/dl Abnormal NEGATIVE [facility] Comment on above: Performed By: #### P SASC #### [facility] [address] [place] [address] Dr. Pam Young LEUKOCYTES Negative Normal NEGATIVE [facility] Comment on above: Performed By: #### P SASC #### [facility] [address] [place] [address] Dr. Pam Young MUCOUS NONE SEEN Normal NONE SEEN [facility] Comment on above: Performed By: #### P SASC #### [facility] [address] [place] [address] Dr. Pam Young Nitrite Ql (U) Negative Normal NEGATIVE [facility] Comment on above: Performed By: #### P SASC #### [facility] [address] [place] [address] Dr. Pam Young pH (U) 6.0 [pH] Normal 5-9 [facility] Comment on above: Performed By: #### P SASC #### [facility] [address] [place] [address] Dr. Pam Young RBC 0-2 Normal 0-2 [facility] Comment on above: Performed By: #### P SASC #### [facility] [address] [place] [address] Dr. Pam Young SPEC GRAVITY 1.020 Normal 1.005-<=1.0 25 [facility] Comment on above: Performed By: #### P SASC #### [facility] [address] [address] [address] Pam Young UA PROTEIN TRACE Normal NEGATIVE/ TRACE [facility] Comment on above: Performed By: #### P SASC #### [facility] [address] [place] [address] Dr. Pam Young Urobilinogen Qn (U) 0.2 {Tramaine'U}/dL Normal 0.2 - 1.0 [facility] Comment on above: Performed By: #### P SASC #### [facility] [address] [place] [address] Dr. Pam Young WBC NONE SEEN Normal NONE SEEN [facility] Comment on above: Performed By: #### P SASC #### [facility] [address] [place] [address] Dr. Pam Young Physician Referralon 020 Physician Referral [id number]:127 Normal [facility] General Surgery Office/Clini c Noteon 04-06-2020 General [...] influenza virus vaccine, inactivated 05/19/2019 Recorded Normal [facility] Comment on above: Result Comment: Elec tronically Signed By: SHIRIN FINCH, Dallas Pitts\Date and Time Signed: 04/06/20 11:59 EDT Ambulatory Clinical Summaryo n 04-05-2020 Ambulatory Clinical Summary {[id number]}CD:6143 68 Normal [facility] Outside Colonoscopyon 2019 Outside Colonoscopy [id number]#1.00CD:127 Normal [facility] Pathology Noteon 04-04-2020 Pathology Note [id number]#1.00CD:127 Normal [facility] RAD - CT Reporton 04-04-2020 RAD - CT Report [id number]#1.00CD:127 Normal [facility] Provider Letter FTon 03-31 Provider Letter [facility] Orlando Clancy [address] [place] [address] [place] [address] Re: JEREMY SCHNEIDER Date of : 1955 Thank you for your referral of Jeremy Schneider who was seen on consultation on 03/24/2020 for abnormal weight loss, nausea, vomiting, bloating and abdominal pain. I have enclosed my consultation notes for your review. Sincerely, Dallas Rossi MD General Surgery [facility] Lab Reportson 03-28-2020 Lab Reports [id number]#1.00CD:127 [facility] Pre-Certification Formon Pre-Certification Form [id number]#1.00CD:127 [facility] Lab Reportson 03-25-2020 Lab Reports [id number]#1.00CD:127 [facility] Ambulatory Clinical Summaryo n 03-24-2020 Ambulatory Clinical Summary {[id number]}CD:6143 68 [facility] Consent for Procedure/Surger yon 03-24-2020 Consent for Procedure/Surgery [id number]#1.00CD:127 [facility] General Surgery Office/Clini c Noteon 03-24-2020 General [...] influenza virus vaccine, inactivated 05/19/2019 Recorded Normal [facility] Comment on above: Result Comment: Elec tronically [...] are taking, including vitamins, herbs, eyedrops, and hulp-wbl-ibydrlm medicines and creams. ? Use of steroids [...] Document Reviewed: 05/27/2013 [employer]Care? Patient Information ?2013 [employer]. Normal [facility] Physician Referralon 020 Physician Referral [id number]#1.00CD:127 Normal [facility] RAD - Ultrasound Reporton RAD - Ultrasound Report [id number]#1.00CD:127 Normal [facility] Reminderson 06-10-2019 Reminders - From: Hugo Ferreira To: GSN - Clinical; Hugo Ferreira; Sent: 06/10/2019 15:06:48 EST Show up: 02/05/2025 15:06:00 EDT Subject: colonoscopy reminder Reminder/Recall Colonoscopy screening reminder 02/[address] [facility] CT CHEST WO CONTRASTon 11-13 CT CHEST WO CONTRAST [facility] Department of Radiology [address] [place] [id number] Patient Name: JEREMY SCHNEIDER : 1955 Sex: M Age: Race: White Pt. Location: Patient Status: O Ordered Date: 11/11/2017 10:25:00 AM Completed Date: 11/13/2017 07:40 AM Requesting Provider: VIMAL REYNOLDS Attending Provider: VIMAL REYNOLDS Report Copy To: Signs & Symptoms: R91.8 Other nonspecific abnormal finding of lung field I10 History: [place] approved per [employer] auth# [id number] 11/11/17-01/10/18 cpt code 87117 Comments: Exam: CT CHEST WO CONTRAST CT [...] findings. Electronically signed by:Elham Posey. Transcribed by: [email or web address], User Resident: JOSE LUIS LAY Electronically Signed by: ELHAM POSEY @ 11/13/2017 02:51 PM I personally read this/these film(s) with this resident Normal [facility] Encounters Encounter Date Encounter Type Care Provider Facility Start: 07-06-2022 End: 07-07-[address] ORLANDO CLANCY Facility: Start: 06-22-2022 End: 06-23-[address] ORLANDO CLANCY Facility: Start: 09-06-2021 End: 09-07-2021 Evaluation and management of inpatient DR ORLANDO CLANCY Facility:[facility] Start: 11-13-2017 End: 11-14-2017 Patient encounter procedure VIMAL REYNOLDS Facility:[facility] C Procedures Date Procedure Procedure Detail Performing Clinician Start: 06-22-[address] DIANA CLANCY Comment on above: Performed By: #### P [facility] #### [facility] [address] [place] [address] Dr. Pam Young Payers Date Payer Category Payer Medicare [id number] 1959 Private Health Insurance CLI [id number] 1955 Unknown [id number] 1955 Unknown [id number] 2.16.84 [id number] 1955 Unknown [id number] 2.16.84 [id number] 1955 Unknown [id number] 2.16.84 [id number] Unknown [id number] Unknown [id number] Summary Purpose Family History No Family History Records FoundNo Family History Records FoundNo Family History Records Found Advance Directives No Advanced Directives Records FoundNo Advanced Directives Records FoundNo Advanced Directives Records Found Additional Source Comments (unrecognized sect ion and content) No Status Records FoundNo Status Records FoundNo Status Records Found INFORMATION SOURCE (unrecogn ized section and content) DATE CREATED AUTHOR 10/21/2018 [facility] DATE CREATED AUTHOR AUTHOR'S ORGANIZ ATION 04/14/[address] [facility] DATE CREATED AUTHOR AUTHOR'S ORGANIZ ATION 07/09/2022 [facility] RECORDS PERTAINING TO PATIENTS WHO ARE [...] BE BASED ON THE PRIMARY CLINICAL RECORDS. [employer] [facility]. provides no warranty or guarantee of the accuracy or completeness of information in this document.
[2024-06-26 06:47] LABS: Basophils Absolute Auto 0.1 10^3/uL (0.0-0.1); Basophils Percent Auto 0.8 % (0.2-2.0); Eosinophils Absolute Auto 0.5 10^3/uL (0.0-0.7); Eosinophils Percent Auto 8.7 % (0.9-7.0); Hematocrit 43.8 % (42.0-54.0); Hemoglobin 15.9 g/dL (14.0-18.0); Immature Granulocytes Abs Auto 0.01 10^3/uL (0.00-0.03); Immature Granulocytes Pct Auto 0.2 % (0.0-0.5); Lymphocytes Absolute Auto 1.4 10^3/uL (1.2-3.8); Lymphocytes Percent Auto 22.9 % (20.5-60.0); Mean Corpuscular HGB Conc 36.3 g/dL (29.9-35.2); Mean Corpuscular Hemoglobin 37.3 pg (25.9-34.0); Mean Corpuscular Volume 102.8 fL (80.0-94.0); Mean Platelet Volume 8.8 fL (9.5-13.5); Monocytes Absolute Auto 0.7 10^3/uL (0.3-0.8); Monocytes Percent Auto 11.9 % (1.7-12.0); Neutrophils Absolute Auto 3.4 10^3/uL (1.4-6.5); Neutrophils Percent Auto 55.5 % (43.0-75.0); Platelet Count 258 10^3/uL (150-450); Red Blood Count 4.26 10^6/uL (4.70-6.10); Red Cell Distribution Width 10.9 % (11.0-15.0); White Blood Count 6.2 10^3/uL (4.0-11.0)
[2024-06-26 07:07] LABS: Estimated Average Glucose 100 mg/dL; Glycohemoglobin A1C 5.1 % (4.5-6.2)
[2024-06-26 08:56] LABS: Alanine Aminotransferase 23 U/L (16-63); Albumin Globulin Ratio 1.1; Albumin Level 3.7 g/dL (3.4-5.0); Alkaline Phosphatase 67 U/L (46-116); Anion Gap 16.1; Aspartate Amino Transferase 23 U/L (15-37); BUN Creatinine Ratio 7.2; Bilirubin Total 0.6 mg/dL (0.2-1.0); Calcium 8.7 mg/dL (8.5-10.1); Carbon Dioxide 24.6 mmol/L (21.0-32.0); Chloride 98 mmol/L (98-107); Chol HDL Ratio 2.1; Cholesterol 208 mg/dL (<=200); Estimated GFR (African America >60 (>=60 mL/min/1.73m^2); Estimated GFR (Non-African Ame >60 (>=60 mL/min/1.73m^2); Free T3 2.91 pg/mL (2.18-3.98); Globulin 3.4 g/dL; Glucose 100 mg/dL (74-106); HDL Cholesterol 98 mg/dL (40-60); Potassium 4.7 mmol/L (3.5-5.1); Sodium 134 mmol/L (136-145); Thyroid Stimulating Hormone 1.425 uIU/mL (0.358-3.740); Total Protein 7.1 g/dL (6.4-8.2); Triglycerides 61 mg/dL (<=150); VLDL CHOLESTEROL 12.2 mg/dL
[2024-06-27 08:09] LABS: PSA, Free 0.35 ng/mL; Prostate Specific Ag 0.8 ng/mL (0.0-4.0)
[2024-06-30 11:08] LABS: Vitamin B12 342 pg/mL (232-1245)
== END 2024-06-26 06:34 | disposition home or self-care (01) ==
LOC: LAB 06:33
PROVIDERS: PCP Family Medicine; Visit Provider Family Medicine
DX: N40.0 Benign prostatic hyperplasia without lower urinary tract symptoms (principal); J44.9 Chronic obstructive pulmonary disease, unspecified; M25.50 Pain in unspecified joint; N52.9 Male erectile dysfunction, unspecified; K21.9 Gastro-esophageal reflux disease without esophagitis; E11.9 Type 2 diabetes mellitus without complications; E03.9 Hypothyroidism, unspecified; D75.89 Other specified diseases of blood and blood-forming organs
CPT/HCPCS: 36415; 80053; 80061; 82607; 83036; 84153; 84154; 84436; 84443; 84481; 85025

== ENCOUNTER 2025-06-26 06:38 | Outpatient (OUT) | payer MEDICARE, SELFPAY ==
--- OUTSIDE RECORDS SUMMARY | 2025-06-25 03:30 | XMS_ITS ---
Author Organization [facility] in [place] Address [address] [place] [address] Care Team Providers Care Manager Social Work Name Role Phone Emmanuel Clancy Primary Care Provider Allergies No Known Allergies Results Component Value Reference Range Notes UA DIP NONAUTO WO MICRO (810 02) - IN OFFICE (Not yet reviewed by provider) Interpretation: Performing Lab: Notes/Report: COLOR light yellow CLARITYclearGLUCOSEnegBILIRUBINnegKETONEnegSPECIFIC GRAVITY1.276GTKDIhpnEL6 PROTEINnegUROBILINOGENnegNITRITEnegLEUKOCYTE ESTERASEneg REASON FOR VISIT Presents to office alone for yearly check up Medications Medication SIG (Take, Route, Frequency, Duration) Notes Start Date End Date Status Doxazosin Mesylate 2 MG TAKE 1 TABLET BY MOUTH E VERY DAY; Duration: 90 days ActiveCelecoxib 200 MGTAKE 1 CAPSULE BY MOUTH EVERY DAY; Duration: 90Active Famotidine 40 MGTAKE 1 TABLET BY MOUTH TWICE A DAY; Duration: 90ActiveTrelegy Ellipta 100-62.5-25 MCG/ACT1 puff Inhalation Once a day06/24/2024Not-Taking Sildenafil Citrate 100 MGTake 1 tablet by mouth as directed 30 minutes prior to intercourse; Duration: 8ActiveAlbuterol Sulfate HFA 108 (90 Base) MCG/ACTINHALE 2 PUFFS BY MOUTH 4 TIMES A DAY NEEDED DIRECTED FOR 25 DAYS; Duration: 25 Active Social History Tobacco Use: Social History Observation Description Date Details (start date - stop date) Current Smoker 07/08/1968 - NA Tobacco Use/Smoking Question Answer Notes Patient is a current smoker When did you start smoking?07/08/1968How often do you smoke cigarettes?every day How many cigarettes a day do you smoke?11-20How soon after you wake up do you smoke your first cigarette?within 5 minutesAre you interested in quitting? Thinking about quittingAUDIT-C (Standard) Question Answer Notes Did you have a drink containing alcohol in the p ast year? Yes How often did you have six or more drinks on one occasion in the past year?Less than monthly (1 point)How many drinks did you have on a typical day when you were drinking in the past year?3 or 4 drinks (1 point)How often did you have a drink containing alcohol in the past year?Daily or almost daily (4 points)Points 6InterpretationPositive Vital Signs Weight 156.8 lbs 06/25/2025 Height 71 in 06/25/2025 Blood pressure systolic 150 mm Hg 06/25/20 25 Blood pressure diastolic 74 mm Hg 025 BMI 21.87 kg/m2 06/25/2025 Encounters Encounter Location Date Provider Diagnosis [address] [address] 06/25/2025 Emmanuel Hoy BPH (benign prostati c hypertrophy) N40.0 ; Impotence N52.9 ; GERD (gastroesophageal reflux disease) K21.9 and Advanced COPD J44.9 Assessments Encounter Date Diagnosis (ICD Code) Assessment Notes Treatment Notes Treatment Clinical Notes Section Notes 06/25/2025 BPH (benign prostatic hypertroph y) (ICD-10 - N40.0) 06/25/2025Impotence (ICD-10 - N52.9)06/25/2025GERD (gastroesophageal reflux disease) (ICD-10 - K21.9)06/25/2025dvanced COPD (ICD-10 - J44.9) Plan Of Treatment Pending Test Test Name Order Date HEMOGLOBIN A1C (GLYCO) 06/25/2025 LIPID PANEL (CHOL/TRIG/HDL/LDL) 06/25/20 25 UA DIP NONAUTO WO MICRO (81982) - IN OFF ICE 06/25/2025 STOOL OCCULT BLOOD 06/25/2025 THYROID PANEL (T4/TSH/FREE T3) PSA, SCREENING 06/25/2025 CT CHEST LOW DOSE (LDCT) 06/25/2025 CMP (COMP MET ARCHER) w/eGFR CKD-EPI 2024 CBC WITH DIFF 06/25/2025 Progress Notes * Richi SCHNEIDER EDOB: [birth year] (69 yo M)Acc No.[id number]:06/25/2025 UNLOCKED PROGRESS NOTE Progress Note Patient: Rcihi BERNSTEIN :?Daryl RebecaLynn Clancy ([facility]), MDDOB:1955???Age: 69 Y???Sex:MaleDate:06/25/2025Phone:[phone]:[address] [place], [place] [id number] In:08:24 AM ESTCheck Out:08:57 AM EST Subjective: * Chief Complaints: * 1 . Presents to office alone for yearly check up. * HPI: ???General:?BPH - had urolift - doenst fee like it helped GERD HTN - stabel uip here. * ROS: ???EENT:?hearing changes?denies.?visual changes?denies. non-healing mouth sores?denies.?swollen glands or neck lumps?denies.?hoarseness?denies.?sore throat?denies.?difficulty swallowing?denies.?nose bleeds?denies.?nasal congestion?denies.?ear ache?denies.?ear discharge denies.?ringing in ears?denies.?light sensitivity?denies.?eye pain?denies.?blurring?denies.?eye irritation?denies.?double vision?denies. vision loss?denies.?General/Constitutional:?Sweats:?Denies.?Fatigue?denies.?Sleep proble ms?denies.?Anorexia?denies.?Malaise?denies.?Weight loss?denies. Fatigue or Weakness?denies.?Fever or Chills?denies.?Cardiovascular:?Shortness of Breath w/lying flat?denies.?Lightheadedne ss/dizziness?denies.?Chest tightness/ heavy pressure?denies.?Swelling of legs, a nkles, or feet?denies.?Waking up with shortness of breath?denies.?Chest pain&#16 0;denies.?Palpitations?denies.?Weight gain?denies.?Respiratory:?Chronic or frequent cough?denies.?Coughing up blood&#1 60;denies.?Difficulty breathing?denies.?Productive cough?denies.?Snoring&#1 60;denies.?Shortness of breath that awakens from sleep (PND)?denies.?Chest pain? denies.?Sputum production?denies.?Wheezing?denies.?Musculoskeletal:?Joint pain?denies.?Joint Fluid?denies.?Backpain?denies.?Knee pain?denies.?Neck pain?denies.?Joint Stiffness?denies.?Muscle cramps?denies.?Weakness of muscles?denies.?Arthritis?denies.?Muscle aches?denies.?Pain in shoulder(s)?denies.?Swollen joints?denies.? * Medical History: I diopathic acute pancreatitis without infection or necrosis, DVT (deep venous thrombosis), Edema, Age related osteoporosis, Abnormal CXR with multiple nodules, Bulging lumbar disc, BPH (benign prostatic hypertrophy), Advanced COPD. * Surgical History: K yphoplasty (T6) , Colonoscopy , Left shoulder surgery , Rt pinky finger Pin , Discectomy cervical spine , left femur fracture with surgical repair , Urolift 12/21/24. * Family History: F ather: , COPD, AAA, diagnosed with Heart Disease. M other: , diagnosed with Kidney Disease, Heart Disease. B rother(s): alive, lung cancer, pancreatic cancer, diagnosed with Cancer. S ister(s): alive, alcoholism, diagnosed with Diabetes, Hypertension, Heart Disease. S on(s): alive. D shastaer(s): alive. 3 brother(s) , 5 sister(s) . 1 son(s) , 1 daughter(s) - healthy. . * Social History: ???Tobacco Use:?Tobacco Use/Smoking?Patient is a?current smoker ?When did you start smoking??07/08/1968 ?How often do you smoke cigarettes??every day ?How many cigarettes a day do you smoke??11-20 ?How soon after you wake up do you smoke your first cigarette??within 5 minutes ?Are you interested in quitting??Thinking about quitting ???Drug/Alcohol:?AUDIT-C (Standard)?Did you have a drink containing alcohol in the past year??Yes ?How often did you have six or more drinks on one occasion in the past year??Less than monthly (1 point) ?How many drinks did you have on a typical daywhen you were drinking in the past year??3 or 4 drinks (1 point) ?How often did you have a drink containing alcohol in the past year?? Daily or almost daily (4 points) ?Points?6 ?Interpretation?Positive * Medications: T aking Albuterol Sulfate HFA 108 (90 Base) MCG/ACT Aerosol Solution INHALE 2 PUFFS BY MOUTH 4 TIMES A DAY NEEDED DIRECTED FOR 25 DAYS , Taking Celecoxib 200 MG Capsule TAKE 1 CAPSULE BY MOUTH EVERY DAY , Taking Doxazosin Mesylate 2 MG Tablet TAKE 1 TABLET BY MOUTH EVERY DAY , Taking Famotidine 40 MG Tablet TAKE 1 TABLET BY MOUTH TWICE A DAY , Taking Sildenafil Citrate 100 MG Tablet Take 1 tablet by mouth as directed 30 minutes prior to intercourse , Not-Taking/PRN Trelegy Ellipta(Llezrjllqcx-Vzgyflwru-Eqckdh) 100-62.5-25 MCG/ACT Aerosol Powder Breath Activated 1 puff Inhalation Once a day * Allergies: N .K.D.A. Objective: * Vitals: W t:156.8lbs, Ht: 71 in, BP:150/74mm Hg, BMI:21.87Index, Ht-cm: 180.34 cm, Wt-k.12 kg. * Examination: ???Physical Exam: ?GENERAL:?well developed, well nourished, in no acute distress.?HEAD:?normocephalic/atraumatic.?EYES:?pupils equal, round and reactive to light, conjunctivae and sclerae normal.?EARS:?no deformity or lesion of external ear, canals and TM appear normal bilaterally, TM's intact, not inflamed with normal light reflex, hearing grossly normal to conversational speech.?NOSE:?no deformity, discharge, inflammation, or lesions. ?MOUTH:?mucous membranes moist, normal oropharynx and posterior pharynx without lesions or exudates, tongue normal, dentition normal.?NECK:?neck supple, no masses or palpable cervical nodes, trachea midline, thyroid without nodules, masses, tenderness, or enlargement.?CHEST:?no chest wall deformity, no chest wall tenderness. ?LUNGS:?normal respiratory effort and clear to auscultation, no wheezes, rales, or rhonchi, good air exchange.?CARDIO:?regular rate and rhythm, normal S1 and S2, nor murmur, rub, or gallop.?PULSES:?normal capillary refill.?ABDOMEN:?soft, non-distended, non-tender, no masses.?MUSCULOSKELETAL:?no deformity or scoliosis noted, normal range of motion, joints normal, no erythema, edema, effusion, or ecchymosis.?EXTREMITY:?no clubbing, cyanosis, edema, or deformity withnormal ROM in both upper and lower bilateral extremities.?NEUROLOGIC:?grossly normal.?SKIN:?no rashes, ulcerations, or suspicious lesions.?LYMPH NODES:?no cervical adenopathy, nodes normal.?MENTAL STATUS:?alert and oriented x3, normal mood and affect.? Assessment: * Assessment: 1.?BPH (benign prostatic hypertrophy) - N40.0 (Primary)???2.?Impotence - N5 2.9???3.?GERD (gastroesophageal reflux disease) - K21.9???4. Advanced COPD - J44.9??? Plan: * Treatment: ?LAB: HEMOGLOBIN A1C (GLYCO) ?LAB: LIPID PANEL (CHOL/TRIG/HDL/LDL) ?LAB: STOOL OCCULT BLOOD ?LAB: THYROID PANEL (T4/TSH/FREE T3) ?LAB: PSA, SCREENING ?LAB: CMP (COMP MET ARCHER) w/eGFR CKD-EPI ?LAB: CBC WITH DIFF ?LAB: UA DIP NONAUTO WO MICRO (72495) - IN OFFICE (Collection Date & Time - 06/25/2025)2.?Impotence?LAB: HEMOGLOBIN A1C (GLYCO) ?LAB: LIPID PANEL (CHOL/TRIG/HDL/LDL) ?LAB: STOOL OCCULT BLOOD ?LAB: THYROID PANEL (T4/TSH/FREE T3) ?LAB: PSA, SCREENING ?LAB: CMP (COMP MET ARCHER) w/eGFR CKD-EPI ?LAB: CBC WITH DIFF3.?GERD (gastroesophageal reflux disease)?LAB: HEMOGLOBIN A1C (GLYCO) ?LAB: LIPID PANEL (CHOL/TRIG/HDL/LDL) ?LAB: STOOL OCCULT BLOOD ?LAB: THYROID PANEL (T4/TSH/FREE T3) ?LAB: PSA, SCREENING ?LAB: CMP (COMP MET ARCHER) w/eGFR CKD-EPI ?LAB: CBC WITH DIFF4.?Advanced COPD?LAB: HEMOGLOBIN A1C (GLYCO) ?LAB: LIPID PANEL (CHOL/TRIG/HDL/LDL) ?LAB: STOOL OCCULT BLOOD ?LAB: THYROID PANEL (T4/TSH/FREE T3) ?LAB: PSA, SCREENING ?LAB: CMP (COMP MET ARCHER) w/eGFR CKD-EPI ?LAB: CBC WITH DIFF ?Imaging: CT CHEST LOW DOSE (LDCT) * Labs: * L ab: UA DIP NONAUTO WO MICRO (42666) - IN OFFICE (Collection Date & Time - 06/25/2025) ?ValueReference Range?COLORlight yellow * C LARITY clear * G LUCOSE neg * B ILIRUBIN neg * K ETONE neg * S PECIFIC GRAVITY 1.010 * B LOOD neg * P H 6 * P ROTEIN neg * U ROBILINOGEN neg * N ITRITE neg * L EUKOCYTE ESTERASE neg * Procedure Codes: 3 078F DIAST BP < 80 MM HG, 3077F SYST BP > OR = 140 MM HG, 11879 URINALYSIS WO MICRO * Preventive Medicine: ??Screenings/Counseling:?TOBACCO ACTION PLAN?Patient counselled on the dangers of tobacco use and urged to quit.? 06/25/2025 . ?FALL RISK SCREENING?Fall Risk Assessment:?No falls in the past year * * Electronic signature of Emmanuel Clancy MD, [id number] on 06/26/2025 at 06:42 AM EST Sign off status: PendingVisit Status:?CHK (Check Out) * Provider: Rolando Clancy (TTC)MD Date: 1 08/26/2024 Generated for Printing/Faxing/eTransmitting on:?06/26/2025 06:42 AM EST History and Physical Notes * HPI (History of Present Illness) CategorySub-CategoryDetailNotesCategory NotesGeneral BPH - had urolift - doenst fee like it helped GERD HTN - stabel uip here Examination CategorySub-CategoryDetailNotesCategory NotesPhysical ExamGENERAL:well developed, well nourished, in no acute distressHEAD:normocephalic/atraumatic EYES:pupils equal, round and reactive to light, conjunctivae and sclerae normal EARS:no deformity or lesion of external ear, canals and TM appear normal bilaterally, TM's intact, not inflamed with normal light reflex, hearing grossly normal to conversational speechNOSE:no deformity, discharge, inflammation, or lesionsMOUTH:mucous membranes moist, normal oropharynx and posterior pharynx without lesions or exudates, tonguenormal, dentition normalNECK:neck supple, no masses or palpable cervical nodes, trachea midline, thyroid without nodules, masses, tenderness, or enlargementCHEST:no chest wall deformity, no chest wall tendernessLUNGS:normal respiratory effort and clear to auscultation, no wheezes, rales, or rhonchi, good air exchangeCARDIO:regular rate and rhythm, normal S1 and S2, nor murmur, rub, or gallopPULSES:normal capillary refillABDOMEN:soft, non-distended, non-tender, no massesRECTAL:MUSCULOSKELETAL:no deformity or scoliosis noted, normal range of motion, joints normal, no erythema, edema, effusion, or ecchymosisEXTREMITY:no clubbing, cyanosis, edema, or deformity with normal ROM in both upper and lower bilateral extremitiesNEUROLOGIC:grossly normalSKIN:no rashes, ulcerations, or suspicious lesionsLYMPH NODES:no cervical adenopathy, nodes normalMENTAL STATUS:alert and oriented x3, normal mood and affect
--- OUTSIDE RECORDS SUMMARY | 2025-06-25 03:45 | XMS_ITS ---
Author Organization The [facility] in [place] Address [address] [place] [address] Care Team Providers Care Translator Interpreter Name Role Phone Emmanuel Clancy Primary Care Provider [phone] REASON FOR VISIT order US and check with urology- Urology calling back Encounters Encounter Location Date Provider Diagnosis [facility] [address] [place] [address] 06/25/2025 Emmanuel Clancy Urinary frequency R35.0 Assessments Encounter Date Diagnosis (ICD Code) Assessment Notes Treatment Notes Treatment Clinical Notes Section Notes 06/25/2025 Urinary frequency (ICD-10 - R35. 0) Plan Of Treatment Pending Test Test Name Order Date US KIDNEYS BLADDER 06/25/2025 Progress Notes * Richi SCHNEIDER EDOB: [birth year] (69 yo M)Acc No.[id number]:06/25/2025 UNLOCKED PROGRESS NOTE Patient:?TROYRichi Royal Brandy :1955???Age:69 Y???Sex:MalePhone:[phone] Address:[address] [place] [address], [address] Subjective: * Chief Complaints: * o rder US and check with urology- Urology calling back * Medical History: * Surgical History: * Hospitalization/Major Diagno stic Procedure: * Medications: Objective: * Vitals: * Physical Examination: ??? Assessment: * Assessment: 1.?Urinary frequency - R35.0 (Primary)??? Plan: * Treatment: ?Imaging: US KIDNEYS BLADDER * Procedure Codes: * * Date:?
--- OUTSIDE RECORDS SUMMARY | 2025-06-26 06:42 | XMS_ITS | Patient Health Record ---
Author Organization The [facility] in [place] Address [address] [place] [address] Care Team Providers Care Acid Tank Cleaner Name Role Phone Emmanuel Clancy Primary Care Provider Allergies No Known Allergies Results Component Value Reference Range Notes Vitamin B12 Reviewed date:07/02/2024 07:46:23 PM Interpretation: Performing Lab: Notes/Report: [facility] , Vitamin B12 363 133-4879 pg/mL [address] [place], [place] [address] Performed at: - [facility] Detonator Assembler: Bo Sands PhD, Phone: [phone] Performing Lab: see note - [facility] LBTSH Reviewed date:06/26/2024 01:12:50 PM Interpretation: Performing Lab: Notes/Report: [facility] ,Thyroid Stimulating Hormone1.4250.358-3.740 uIU/mLPerforming Lab:see noteML - [facility] LBT4 Reviewed date:06/26/2024 01:12:50 PM Interpretation: Performing Lab: Notes/Report: [facility] ,T4 Thyroxine8.004.50-12.10 ug/dLPerforming Lab:see note - [facility] LBLIPID PROFILE Reviewed date:06/26/2024 01:12:50 PM Interpretation: Performing Lab: Notes/Report: [facility] ,Xjmassxwkbvnp98<=150 mg/rIJtpjwcpwufb368<=200 mg/dLHDL Jcfdpbnqogc6728-91 mg/dL > or =60 mg/dl - LOW CARDIOVASCULAR RISK <40 mg/dl - HIGH CARDIOVASCULAR RISK LDL Cholesterol Tpxqqqmhaf60.0 >190 mg/dl VERY HIGH 160-189 mg/dl HIGH 130-159 mg/dl BORDERLINE HIGH <100 mg/dl OPTIMAL 100-129 mg/dl NEAR OR ABOVE OPTIMAL VLDL XZDEFZHRWVF39.2Chol HDL Ratio2.1 >11.0 HIGH RISK 7.1 - 11.0 MODERATE RISK 4.4 - 7.1 AVERAGE RISK 3.3 - 4.4 LOW RISK Performing Lab:see noteML - [facility] LBFREE T3 Reviewed date:06/26/2024 01:12:50 PM Interpretation: Performing Lab: Notes/Report: [facility] ,Free T32.912.18-3.98 pg/mLPerforming Lab:see noteML - [facility] LB PSA Total+% Free Reviewed date:06/28/2024 02:16:24 PM Interpretation: Performing Lab: Notes/Report: [facility] ,Prostate Specific Ag0.80.0-4.0 ng/mL should decrease and remain at undetectable levels after recurrence as an initial PSA value 0.2 ng/mL or greater followed by a subsequent confirmatory PSA value 0.2 ng/mL interpreted as absolute evidence of the presence or absence of malignant disease. or greater. Values obtained with different assay methods or radical prostatectomy. The AUA defines biochemical Jignesh ECLIA methodology. kits cannot be used interchangeably. Results cannot be According to the [employer], Serum PSA PSA, Free0.35N/A ng/mLRoche ECLIA methodology.% Free PSA43.8. % percent free PSA for any other population recommendations regarding the use of % Free PSA 50-64 yr 65-75 yr 279:1542). 10.01-15.00% 24% 35% The table below lists the probability of prostate cancer for 4 and 10 ng/mL, by patient age (Donnell et al, ADARSH 1998, men with non-suspicious KATRINA results and total PSA between 20.01-25.00% 10% 20% of men. 0.00-10.00% 56% 55% Detonator Assembler: Bo Sands PhD, Phone: [phone] Performed at: [facility] >25.00% 5% 9% Please note: Osmar did not make specific [address] [phone] 15.01-20.00% 17% 23% Performing Lab:see noteLC - [facility] LBUA DIP NONAUTO WO MICRO (08165) - IN OFFICE (Not yet reviewed by provider) Interpretation: Performing Lab: Notes/Report: COLORlight yellowCLARITYclearGLUCOSEnegBILIRUBINnegKETONEnegSPECIFIC GRAVITY 1.515YSTRQcqpVZ7LEGJSVPcdyWTYWOTOXQRUCvmjKJSJCVKwtbFNLYGRHCB ESTERASEnegPROF 14(COMP METB) Reviewed date:06/26/2024 01:12:50 PM Interpretation: Performing Lab: Notes/Report: [facility] ,Norqat598590-313 mmol/LPotassium4.73.5-5.1 mmol/KRkfzggux1275-701 mmol/LCarbon Abpjbhi55.621.0-32.0 mmol/LAnion Gap16.5Txycxiy53232-904 mg/dLBlood Urea Nitrogen7.07.0-18.0 mg/dLCreatinine0.970.70-1.30 mg/dLEstimated GFR ( Heidi>60>=60 mL/min/1.73m 2Estimated GFR (Non- Jacqueline>60>=60 mL/min/1.73m 2BUN Creatinine Ratio7.6Xclzedq9.78.5-10.1 mg/dLBilirubin Total0.60.2-1.0 mg/dL Aspartate Amino Kwqgqvulxme9724-12 U/LAlanine Xunbfzatxpiiuinv3379-81 U/L Alkaline Zodrhbrpzig6776-994 U/LTotal Protein7.16.4-8.2 g/dLAlbumin Level3.73.4- 5.0 g/dLGlobulin3.4Albumin Globulin Ratio1.1Performing Lab:see noteML - [facility] LBCBC AUTO DIFF Reviewed date:06/26/2024 01:12:50 PM Interpretation: Performing Lab: Notes/Report: [facility] ,White Blood Count6.24.0-11.0 10 3/uLRed Blood Count4.264.70-6.10 10 6/uL Przpqudhxw04.914.0-18.0 g/xYCxezrdrhdj50.842.0-54.0 %Mean Corpuscular Volume 102.880.0-94.0 fLMean Corpuscular Nufsqwcxst38.325.9-34.0 pgMean Corpuscular HGB Conc36.329.9-35.2 g/dLRed Cell Distribution Width10.911.0-15.0 %Platelet Count 871129-841 10 3/uLMean Platelet Volume8.89.5-13.5 fLNeutrophils Percent Auto55.5 43.0-75.0 %Lymphocytes Percent Auto22.920.5-60.0 %Monocytes Percent Auto11.91.7- 12.0 %Eosinophils Percent Auto8.70.9-7.0 %Basophils Percent Auto0.80.2-2.0 % Immature Granulocytes Pct Auto0.20.0-0.5 %Neutrophils Absolute Auto3.41.4-6.5 10 3/uLLymphocytes Absolute Auto1.41.2-3.8 10 3/uLMonocytes Absolute Auto0.70.3-0.8 10 3/uLEosinophils Absolute Auto0.50.0-0.7 10 3/uLBasophils Absolute Auto0.10.0- 0.1 10 3/uLImmature Granulocytes Abs Auto0.010.00-0.03 10 3/uLPerforming Lab:see noteML - [facility] LBGLYCOHEMOGLOBIN A1C Reviewed date:06/26/2024 01:12:50 PM Interpretation: Performing Lab: Notes/Report: [facility] ,Glycohemoglobin A1C5.14.5-6.2 % ADA RECOMMENDED LIMIT 4.0 - 6.0 > 7.0 ACTION SUGGESTED ADA THERAPEUTIC TARGET < 7.0 Estimated Average Nnpudyn144Bvmdvwksus Lab:see noteML - [facility] LB Reason For Referral No Information Medications Medication SIG (Take, Route, Frequency, Duration) Notes Start Date End Date Status Albuterol Sulfate HFA 108 (9 0 Base) MCG/ACT INHALE 2 PUFFS BY MOUTH 4 TIMES A DAY NEEDED DIRECTED FOR 25 DAYS; Duration: 25 ActiveDoxazosin Mesylate 2 MGTAKE 1 TABLET BY MOUTH EVERY DAY; Duration: 90 days ActiveCelecoxib 200 MGTAKE 1 CAPSULE BY MOUTH EVERY DAY; Duration: 90Active Famotidine 40 MGTAKE 1 TABLET BY MOUTH TWICE A DAY; Duration: 90ActiveTrelegy Ellipta 100-62.5-25 MCG/ACT1 puff Inhalation Once a day06/24/2024Not-Taking Sildenafil Citrate 100 MGTake 1 tablet by mouth as directed 30 minutes prior to intercourse; Duration: 8Active Immunizations Vaccine Route Administration Date Status Comme nts Flu, Fluad (00278) 65 yrs+, single-dose syringe (3287-3195) Unknown 03/27/2023 Administered Pneumococcal (Pneumovax 23)Cmcajcs72/14/2022AdministeredPneumococcal (Prevnar 13)Zwqgbsf12/16/2021AdministeredRSV GywnmumWuiurzt91/20/2023Administered SARS-COV-2 (COVID 19 Jevon Booster 0.5mL) Hans and MuxldcrGfffwpn45/10/2021 DoloxcatxfnmKLJW-API-1 (COVID 19 Moderna - Booster 0.25mL)Qavleqx7005/01/2021 UjadhfnydcgmCQVS-IZD-0 (COVID 19 Moderna - Booster 0.25mL)Dmekden1010/12/2021 OuxjmohthkjxHGLB-BHT-8 (COVID 19 Moderna Bivalent Booster 0.5mL)Unknown 2AdministeredShingrix (Zoster)Kwgcbvq79/13/2021AdministeredShingrix (Zoster)Ddfbezo7809/26/2021dministered Social History Tobacco Use: Social History Observation [...] minutesAre you interested in quitting? Thinking about quittingAlcohol Screen (Audit-C) Question Answer Notes Did you have a drink containing alcohol in the p ast year? Yes How often did you have 6 or more drinks on one occasion in the past year?Four or more times a week (4 points)How many drinks did you have on a typical day when you were drinking in the past year?5 or 6 drinks (2 points)How often did you have a drink containing alcohol in the past year?Daily or almost daily (4 points)Msywbe99KhmrwegybfelqeIaiafeqfWAOZA-T (Standard) Question Answer Notes Did you have [...] year?Daily or almost daily (4 points)Points 6InterpretationPositive Problems Problem Type SNOMED Code ICD Code Onset Dates Problem Status W/U Status Risk Notes Problem Disease of blood AND /OR blood-forming organ (047275987) Other specified diseases of blood and blood-forming organs (D75.89) ActiveconfirmedProblemGastroesophageal reflux disease (412818289)GERD (gastroesophageal reflux disease) (K21.9)ActiveconfirmedProblemAge related osteoporosis (49714143)Age related osteoporosis (M81.0)ActiveconfirmedProblem Erectile dysfunction (disorder) (008349072)Impotence (N52.9)Activeconfirmed ProblemChronic obstructive pulmonary disease (03042419)Advanced COPD (J44.9) ActiveconfirmedProblemBenign prostatic hypertrophy without outflow obstruction (480321119)BPH (benign prostatic hypertrophy) (N40.0)Activeconfirmed Vital Signs Blood pressure diastolic 74 mm Hg 06/25/2025 Oyxekf99 in06/25/2025lood pressure wksizgga494 mm Hg06/25/20256706Xbjyvk208.8 lbs 06/25/2025BMI21.87 kg/m206/25/2025 Encounters Encounter Location Date Provider Diagnosis [facility] [address] [place] [address] 06/25/2025 Emmanuel Hoy Urinary frequency R35.0 [facility] [address] [place] [address] 06/26/2024 Emmanuel Hoy Other specified diseases of blood and blood-forming organs D75.89 [facility] [address] [place] [address] 06/25/2025 Emmanuel Hoy BPH (benign prostati c hypertrophy) N40.0 ; Impotence N52.9 ; GERD (gastroesophageal reflux disease) K21.9 and Advanced COPD J44.9 Assessments Encounter Date Diagnosis (ICD Code) Assessment Notes Treatment Notes Treatment Clinical Notes Section Notes 06/25/2025 BPH (benign prostatic hypertroph y) (ICD-10 - N40.0) 06/25/2025Impotence (ICD-10 - N52.9)06/26/2024Other specified diseases of blood and blood-forming organs (ICD-10 - D75.89)06/25/2025Urinary frequency (ICD-10 - R35.0)06/25/2025GERD (gastroesophageal reflux disease) (ICD-10 - K21.9) 06/25/2025dvanced COPD (ICD-10 - J44.9) Plan Of Treatment Pending Test Test Name Order Date CMP (COMPLETE METABOLIC PANEL) 3 CMP (COMPLETE METABOLIC PANEL) 4 HEMOGLOBIN A1C (GLYCO) 06/25/2025 HEMOGLOBIN A1C (GLYCO) 06/21/2023 HEMOGLOBIN A1C (GLYCO) 06/24/2024 LIPID PANEL (CHOL/TRIG/HDL/LDL) 06/25/20 25 LIPID PANEL (CHOL/TRIG/HDL/LDL) 06/24/20 24 LIPID PANEL (CHOL/TRIG/HDL/LDL) 06/21/20 23 CBC WITH DIFF (EXP 05/2025) 06/21/2023 CBC WITH DIFF (EXP 05/2025) 06/24/2024 PSA, PROSTATE-SPECIFIC ANTIGEN 3 UA DIP NONAUTO WO MICRO (15482) - IN OFF ICE 06/25/2025 CT Chest Low Dose for Screening* 023 PSA, TOTAL 06/24/2024 STOOL OCCULT BLOOD 06/25/2025 VIT B12 AND FOLATE 06/23/2023 VITAMIN B12 06/26/2024 US KIDNEYS BLADDER 06/25/2025 THYROID PANEL (T4/TSH/FREE T3) 5 THYROID PANEL (T4/TSH/FREE T3) 4 THYROID PANEL (T4/TSH/FREE T3) 3 Free PSA 06/24/2024 PSA, SCREENING 06/25/2025 CT CHEST LOW DOSE (LDCT) 06/25/2025 CMP (COMP MET ARCHER) w/eGFR CKD-EPI 2024 CBC WITH DIFF 06/25/2025 Insurance Providers Payer Name Payer Address Payer Phone Subscriber Number Group Number Insured Name Patient Relationship to Insured Coverage Start Date Coverage End Date [place]IC[place] [address] [place] [address] [id number] Cecily Lisaelf - patient is the [facility] CO[address] [place], [place] [id number], WilliamSelf - patient is the insured Medical (General) History Medical History History ICD Code Idiopathic acute pancreatitis without in fection or necrosis K85.00 DVT (deep venous thrombosis) I82.409 Edema R60.9 Age related osteoporosis M81.0 Abnormal CXR with multiple nodules R91.8 Bulging lumbar disc M51.36 BPH (benign prostatic hypertrophy) N40.0 Advanced COPD J44.9 Surgical History Surgery Date(Month/Year) Urolift 12/21/24 left femur fracture with surgical repair Discectomy cervical spineRt pinky finger PinLeft shoulder surgeryColonoscopy Kyphoplasty (T6)
[2025-06-26 06:52] LABS: Hematocrit 46.0 % (42.0-54.0); Hemoglobin 16.7 g/dL (14.0-18.0); Immature Granulocytes Abs Auto 0.01 10^3/uL (0.00-0.03); Immature Granulocytes Pct Auto 0.2 % (0.0-0.5); Lymphocytes Absolute Auto 1.6 10^3/uL (1.2-3.8); Mean Corpuscular HGB Conc 36.3 g/dL (29.9-35.2); Mean Corpuscular Hemoglobin 36.7 pg (25.9-34.0); Mean Corpuscular Volume 101.1 fL (80.0-94.0); Platelet Count 274 10^3/uL (150-450); Red Blood Count 4.55 10^6/uL (4.70-6.10); White Blood Count 5.9 10^3/uL (4.0-11.0)
[2025-06-26 07:30] LABS: Alanine Aminotransferase 18 U/L (16-63); Albumin Globulin Ratio 1.2; Albumin Level 4.0 g/dL (3.4-5.0); Alkaline Phosphatase 69 U/L (46-116); Anion Gap 13.9; Aspartate Amino Transferase 15 U/L (15-37); Blood Urea Nitrogen 8.0 mg/dL (7.0-18.0); Calcium 8.8 mg/dL (8.5-10.1); Carbon Dioxide 26.6 mmol/L (21.0-32.0); Chloride 97 mmol/L (98-107); Cholesterol 207 mg/dL (<=200); Estimated GFR (African America >60 (>=60 mL/min/1.73m^2); Estimated GFR (Non-African Ame >60 (>=60 mL/min/1.73m^2); Free T3 2.20 pg/mL (2.18-3.98); Globulin 3.4 g/dL; Glucose 105 mg/dL (74-106); HDL Cholesterol 90 mg/dL (40-60); Potassium 4.5 mmol/L (3.5-5.1); Sodium 133 mmol/L (136-145); Thyroid Stimulating Hormone 1.361 uIU/mL (0.358-3.740); Total Protein 7.4 g/dL (6.4-8.2); Triglycerides 50 mg/dL (<=150); VLDL CHOLESTEROL 10.0 mg/dL
== END 2025-06-26 06:39 | disposition home or self-care (01) ==
LOC: LAB 06:39
PROVIDERS: PCP Family Medicine; Visit Provider Family Medicine
DX: N40.0 Benign prostatic hyperplasia without lower urinary tract symptoms (principal); N52.9 Male erectile dysfunction, unspecified; K21.9 Gastro-esophageal reflux disease without esophagitis; J44.9 Chronic obstructive pulmonary disease, unspecified; E78.5 Hyperlipidemia, unspecified; R73.09 Other abnormal glucose; Z12.12 Encounter for screening for malignant neoplasm of rectum; Z12.5 Encounter for screening for malignant neoplasm of prostate
CPT/HCPCS: 36415; 80053; 80061; 83036; 84436; 84443; 84481; 85025; G0103

== ENCOUNTER 2025-07-02 07:59 | Outpatient (OUT) | payer MEDICARE, SELFPAY ==
--- OUTSIDE RECORDS SUMMARY | 2025-06-25 03:30 | XMS_ITS ---
Author Organization The [facility] in [place] Address [address] [place] [address] Care Team Providers Care Dynamometer Tester Engine Name Role Phone Emmanuel Clancy Primary Care Provider [phone] Allergies No Known Allergies Results Component Value Reference Range Notes UA DIP NONAUTO WO MICRO (810 02) - IN OFFICE Reviewed date:06/27/2025 09:05:22 AM Interpretation: Performing Lab: Notes/Report: COLOR light yellow CLARITYclearGLUCOSEnegBILIRUBINnegKETONEnegSPECIFIC GRAVITY1.119XUPZPbtkVL6 PROTEINnegUROBILINOGENnegNITRITEnegLEUKOCYTE ESTERASEneg REASON FOR VISIT Presents to office alone for yearly check up Medications Medication SIG (Take, Route, Frequency, Duration) Notes Start Date End Date Status Doxazosin Mesylate 2 MG TAKE 1 TABLET BY MOUTH E DAY; Duration: 90 days ActiveCelecoxib 200 MGTAKE [...] 06/25/2025 Encounters Encounter Location Date Provider Diagnosis [facility] [address] [place] [address] 06/25/2025 Emmanuel Hoy BPH (benign prostati c [...] (GLYCO) 06/25/2025 LIPID PANEL (CHOL/TRIG/HDL/LDL) 06/25/20 25 STOOL OCCULT BLOOD 06/25/2025 THYROID PANEL (T4/TSH/FREE T3) PSA, SCREENING 06/25/2025 CT CHEST LOW DOSE (LDCT) 06/25/2025 CMP (COMP MET ARCHER) w/eGFR CKD-EPI 2024 CBC WITH DIFF 06/25/2025 Progress Notes * Richi SCHNEIDER EDOB: [birth year] (69 yo M)Acc No.[id number]:06/25/2025 Progress Note Patient: Richi BERNSTEIN :?Daryl Clancy ([facility]), MDDOB:1955???Age: 69 Y???Sex:MaleDate:06/25/2025Phone:[phone]:[address] [place], [place] [address]Check In:08:24 AM ESTCheck Out:08:57 AM EST Subjective: * Chief Complaints: * P resents to office alone for yearly check up * HPI: ???General:?BPH - had urolift - [...] of muscles?denies.?Arthritis?denies.?Muscle aches?denies.?Pain in shoulder(s)?denies.?Swollen joints?denies.? * Active Problem List M81.0 Age related osteopor osis Modified On:06/18/2023W/U Status:rqoghmtryQ20.9Advanced COPD Modified On:06/21/2023W/U Status:rvnbarphtK52.0BPH (benign prostatic hypertrophy) Modified On:06/21/2023W/U Status:ycavvjypvU55.9Impotence Modified On:06/24/2024/U Status:kjiayyhqsE51.9GERD (gastroesophageal reflux disease) Modified On:06/24/2024W/U Status:ilybbrlcuP07.89Other specified diseases of blood and blood-forming organs Modified On:06/29/2024W/U Status:confirmed * Medical History: * Surgical History: K yphoplasty (T6) Colonoscopy Left shoulder surgery Rt pinky finger Pin Discectomy cervical spine left femur fracture with surgical repair Urolift 12/21/24 * Hospitalization/Major Diagno stic Procedure: * Family History: F ather: , COPD, AAA, diagnosed with Heart Disease. M other: , diagnosed with Kidney Disease, Heart Disease. B rother(s): alive, lung cancer, pancreatic cancer, diagnosed with Cancer. S ister(s): alive, alcoholism, diagnosed with Diabetes, Hypertension, Heart Disease. S on(s): alive. D romángaryjosh(s): alive. 3 brother(s) , 5 sister(s) . [...] (4 points) ?Points?6 ?Interpretation?Positive * Medications: T akingAlbuterol Sulfate HFA 108 (90 Base) MCG/ACT Aerosol Solution INHALE 2 PUFFS BY MOUTH 4 TIMES A DAY NEEDED DIRECTED FOR 25 DAYS Celecoxib 200 MG Capsule TAKE 1 CAPSULE BY MOUTH EVERY DAY Doxazosin Mesylate 2 MG Tablet TAKE 1 TABLET BY MOUTH EVERY DAY Famotidine 40 MG Tablet TAKE 1 TABLET BY MOUTH TWICE A DAY Sildenafil Citrate 100 MG Tablet Take 1 tablet by mouth as directed 30 minutes prior to intercourse Taking Albuterol Sulfate HFA 108 (90 Base) MCG/ACT Aerosol Solution INHALE 2 PUFFS BY MOUTH 4 TIMES A DAY NEEDED DIRECTED FOR 25 DAYS Taking Celecoxib 200 MG Capsule TAKE 1 CAPSULE BY MOUTH EVERY DAY Taking Doxazosin Mesylate 2 MG Tablet TAKE 1 TABLET BY MOUTH EVERY DAY Taking Famotidine 40 MG Tablet TAKE 1 TABLET BY MOUTH TWICE A DAY Taking Sildenafil Citrate 100 MG Tablet Take 1 tablet by mouth as directed 30 minutes prior to intercourse Not-Taking/PRNTrelegy Ellipta(Lbsdayzcetg-Raptsgiba-Zogsoa) 100-62.5-25 MCG/ACT Aerosol Powder Breath Activated 1 puff Inhalation Once a day Not-Taking/PRN Trelegy Ellipta(Snhqquwvsko-Bxhahncpc-Lnxufe) 100-62.5-25 MCG/ACT Aerosol Powder Breath Activated 1 puff Inhalation Once a day * Allergies: N .K.D.A.no[Allergies Verified] Objective: * Vitals: W t:156.8lbs, Ht: 71 [...] DIFF ?LAB: UA DIP NONAUTO WO MICRO (21841) - IN OFFICE (Collection Date & Time [...] L ab: UA DIP NONAUTO WO MICRO (89351) - IN OFFICE (Collection Date & Time - 06/25/2025) ?ValueReference Range?COLORlight yellow * C LARITY clear * G LUCOSE neg * B ILIRUBIN neg * K ETONE neg * S PECIFIC GRAVITY 1.010 * B LOOD neg * P H 6 * P ROTEIN neg * U ROBILINOGEN neg * N ITRITE neg * L EUKOCYTE ESTERASE neg * Procedure Codes: 8 1002 URINALYSIS WO [id number] DIAST BP < 80 MM [id number] SYST BP > OR = 140 MM HG * Preventive Medicine: ??Screenings/Counseling:?TOBACCO ACTION PLAN?Patient counselled on the dangers of tobacco use and urged to quit.? 06/25/2025 . ?FALL RISK SCREENING?Fall Risk Assessment:?No falls in the past year * * Sign off status: CompletedVisit Status:?CHK (Check Out) true * Provider: Rolando Clancy ([facility])MD Date: 08/26/2024 Generated for Printing/FaInfoharmoni/eTransmitting on:?07/02/2025 08:02 AM EST History and Physical Notes * [...]
--- OUTSIDE RECORDS SUMMARY | 2025-06-25 03:45 | XMS_ITS ---
Author Organization The [facility] in [place] Address [address] [place] [address] Care Team Providers Care Nurseryman Assistant Name Role Phone Emmanuel Clancy Primary Care Provider REASON FOR VISIT Med question Encounters Encounter Location Date Provider Diagnosis [facility] [address] [place] [address] 06/25/2025 Emmanuel Clancy Urinary frequency R35.0 Assessments Encounter Date Diagnosis (ICD Code) Assessment Notes Treatment Notes Treatment Clinical Notes Section Notes 06/25/2025 Urinary frequency (ICD-10 - R35. 0) Plan Of Treatment Pending Test Test Name Order Date US KIDNEYS BLADDER 06/25/2025 Progress Notes * Richi SCHNEIDER EDOB: [birth year] (69 yo M)Acc No.[id number]:06/25/2025 UNLOCKED PROGRESS NOTE Patient:?Richi SCHNEIDER :1955???Age:69 Y???Sex:MalePhone:[phone] Address:[address] [place] [address], [address] Subjective: * Chief Complaints: * M ed question * Medical History: * Surgical History: * Hospitalization/Major Diagno stic Procedure: * Medications: Objective: * Vitals: * Physical Examination: ??? Assessment: * Assessment: 1.?Urinary frequency - R35.0 (Primary)??? Plan: * Treatment: ?Imaging: US KIDNEYS BLADDER * Procedure Codes: * * Date:?
--- NOTE | 2025-07-02 08:02 | CT_ITS ---
The [address] [address] Patient Name: JEREMY SCHNEIDER MRN: [id number] date: 1955 Sex: M Assigned Patient Location: US Current Patient Location: US Accession/Order Number: [id number] Exam Date: 07/02/2025 08:38 Report Date: 07/02/2025 09:46 At the request of: ORLANDO BUTCHER MD Procedure: CT lung screening low-dose LOW-DOSE SCREENING CHEST CT WITHOUT CONTRAST COMPARISON: 06/26/2023 CLINICAL DATA: Current smoker with 56 pack year history. Spiral axial unenhanced low-dose images were obtained through the chest. Images were reviewed using both narrow and wide window settings. This CT exam was performed using one or more following dose reduction techniques: Automated exposure control, adjustment of the mA and/or kV according to patient size, or use of iterative reconstruction technique. The heart is not enlarged. No pericardial effusion is present. There is coronary artery disease. The ascending aorta is ectatic. There is plaque at the aortic arch, descending aorta and proximal great vessels. There are calcified left hilar granulomas. A similar precarinal lymph node is again noted. There is prior lower cervical fusion. There are similar thoracic compression deformities with prior mid thoracic kyphoplasty. The right lung shows slight volume loss and calcified pleural plaque at the base. There is obstructive lung disease with airspace lucencies. Mild scarring is present at the right apex. Scarring is also seen at the lung bases, greater on the right. No pleural effusion or pneumothorax is seen. Similar calcified and noncalcified pulmonary nodules are present. There is a new cluster of tiny nodules within left upper lobe in the perihilar region measuring up to 3 - 4 mm in size. Limited imaging through the upper abdomen shows calcified splenic granulomas. CT/CT lung screening low-dose IMPRESSION: GRANULOMATOUS AND OBSTRUCTIVE LUNG DISEASE. RIGHT-SIDED CALCIFIED PLEURAL PLAQUE. PULMONARY SCARRING. CONTINUED PULMONARY NODULARITY WITH NEW CLUSTERED NODULES IN THE LEFT UPPER LOBE, DESCRIBED. Lung RADS category 2 - benign Twelve-month low-dose CT follow-up suggested. Impression dictated by: Brandi An M.D. 07/02/2025 9:46 AM Dictation Location: [email or web address] Electronically authenticated by: [id number] Y Date: 07/02/2025 09:46
--- OUTSIDE RECORDS SUMMARY | 2025-07-02 08:02 | XMS_ITS | Patient Health Record ---
Author Organization The [facility] [place] Address [address] [place] [address] Care Team Providers Care High Raw Sugar Boiler Name Role Phone Emmanuel Clancy Primary Care Provider [phone] Allergies No Known Allergies Results Component Value Reference Range Notes GLYCOHEMOGLOBIN A1C Reviewed date:06/27/2025 09:05:22 AM Interpretation: Performing Lab: Notes/Report: [facility] , Glycohemoglobin A1C 5.1 4.5-6.2 % ADA RECOMMENDED LIMIT 4.0 - 6.0 ADA THERAPEUTIC TARGET < 7.0 ACTION SUGGESTED > 7.0 Estimated Average Glucose 100 Performing Lab:see noteML - [facility] LBPROF 14(COMP METB) Reviewed date:06/27/2025 09:05:22 AM Interpretation: Performing Lab: Notes/Report: [facility] ,Czxxso449535-431 mmol/LPotassium4.53.5-5.1 mmol/QQzofllmt3039-150 mmol/LCarbon Qoysmrc12.621.0-32.0 mmol/LAnion Gap13.1Jwhstjj16896-235 mg/dLBlood Urea Nitrogen8.07.0-18.0 mg/dLCreatinine0.840.70-1.30 mg/dLEstimated GFR ( Heidi>60>=60 mL/min/1.73m 2Estimated GFR (Non- Jacqueline>60>=60 mL/min/1.73m 2BUN Creatinine Ratio9.5Iftbzzv6.88.5-10.1 mg/dLBilirubin Total0.70.2-1.0 mg/dL Aspartate Amino Vjqmphfchzp9089-86 U/LAlanine Ymnikhkhqpfikquz6706-36 U/L Alkaline Kjqraiivqav5927-281 U/LTotal Protein7.46.4-8.2 g/dLAlbumin Level4.03.4- 5.0 g/dLGlobulin3.4Albumin Globulin Ratio1.2Performing Lab:see noteML - [facility] LBPSA SCREENING Reviewed date:06/27/2025 09:05:22 AM Interpretation: Performing Lab: Notes/Report: [facility] ,Prostate Specific Antigen Scrn1.29<=4.00 ng/mLPerforming Lab:see noteML - [facility] LBT4 Reviewed date:06/27/2025 09:05:22 AM Interpretation: Performing Lab: Notes/Report: [facility] ,T4 Thyroxine6.904.50-12.10 ug/dLPerforming Lab:see noteML - [facility] LBTSH Reviewed date:06/27/2025 09:05:22 AM Interpretation: Performing Lab: Notes/Report: [facility] ,Thyroid Stimulating Hormone1.3610.358-3.740 uIU/mLPerforming Lab:see note - [facility] LBLIPID PROFILE Reviewed date:06/27/2025 09:05:22 AM Interpretation: Performing Lab: Notes/Report: [facility] ,Axcbuzmssacgz82<=150 mg/zMBziklfptewz496<=200 mg/dLHDL Sluwigxhpea3210-56 mg/dL > or =60 mg/dl - LOW CARDIOVASCULAR RISK <40 mg/dl - HIGH CARDIOVASCULAR RISK LDL Cholesterol Jolbiinjcb617.0 <100 mg/dl OPTIMAL 100-129 mg/dl NEAR OR ABOVE OPTIMAL 130-159 mg/dl BORDERLINE HIGH 160-189 mg/dl HIGH >190 mg/dl VERY HIGH VLDL ZTWWHZVVROU88.0Chol HDL Ratio2.3 3.3 - 4.4 LOW RISK 4.4 - 7.1 AVERAGE RISK 7.1 - 11.0 MODERATE RISK >11.0 HIGH RISK Performing Lab:see note - [facility] LBFREE T3 Reviewed date:06/27/2025 09:05:22 AM Interpretation: Performing Lab: Notes/Report: [facility] ,Free T32.202.18-3.98 pg/mLPerforming Lab:see noteML - [facility] LB CBC AUTO DIFF Reviewed date:06/27/2025 09:05:22 AM Interpretation: Performing Lab: Notes/Report: [facility] ,White Blood Count5.94.0-11.0 10 3/uLRed Blood Count4.554.70-6.10 10 6/uL Lcqmyrcxck38.714.0-18.0 g/zHCvebxqzpqo68.042.0-54.0 %Mean Corpuscular Volume 101.180.0-94.0 fLMean Corpuscular Aogttsylil46.725.9-34.0 pgMean Corpuscular HGB Conc36.329.9-35.2 g/dLRed Cell Distribution Width11.411.0-15.0 %Platelet Count 998384-290 10 3/uLMean Platelet Volume8.29.5-13.5 fLNeutrophils Percent Auto48.4 43.0-75.0 %Lymphocytes Percent Auto26.520.5-60.0 %Monocytes Percent Auto13.81.7- 12.0 %Eosinophils Percent Auto10.10.9-7.0 %Basophils Percent Auto1.00.2-2.0 % Immature Granulocytes Pct Auto0.20.0-0.5 %Neutrophils Absolute Auto2.91.4-6.5 10 3/uLLymphocytes Absolute Auto1.61.2-3.8 10 3/uLMonocytes Absolute Auto0.80.3-0.8 10 3/uLEosinophils Absolute Auto0.60.0-0.7 10 3/uLBasophils Absolute Auto0.10.0- 0.1 10 3/uLImmature Granulocytes Abs Auto0.010.00-0.03 10 3/uLPerforming Lab:see noteML - [facility] LBUA DIP NONAUTO WO MICRO (04436) - IN OFFICE Reviewed date:06/27/2025 09:05:22 AM Interpretation: Performing Lab: Notes/Report: COLORlight yellowCLARITYclearGLUCOSEnegBILIRUBINnegKETONEnegSPECIFIC GRAVITY 1.937PCCPLfzlYG8CYMHANBqicOMKUNDFGLCUZltwHNOCXINkleRSYDDDYIU ESTERASEneg Reason For Referral No Information Medications Medication [...] TABLET BY MOUTH TWICE A DAY; Duration: 90ActiveSildenafil Citrate 100 MGTake 1 tablet by mouth as directed 30 minutes prior to intercourse; Duration: 8ActiveTrelegy Ellipta 100-62.5-25 MCG/ACT1 puff Inhalation Once a day06/24/2024Not-Taking Immunizations Vaccine Route Administration Date Status Comme nts Flu, Fluad (90878) 65 yrs+, single-dose syringe (0504-4638) Unknown 03/27/2023 Administered Pneumococcal (Pneumovax 23)Ktweypu8706/20/2022dministeredPneumococcal (Prevnar 13)Poofdeb60/16/2021AdministeredRSV ZkjibhxEwrvkqj20/20/2023Administered SARS-COV-2 (COVID 19 Jevon Booster 0.5mL) Hans and UakctadJcyjeyh97/10/2021 UylghbwxdyhfVYQC-HWL-3 (COVID 19 Moderna - Booster 0.25mL)Flnioky5405/01/2021 VxgentzlidrvZTJP-ZGS-1 (COVID 19 Moderna - Booster 0.25mL)Nfqixja3410/12/2021 WebyckjmaaeuCSMB-AJH-0 (COVID 19 Moderna Bivalent Booster 0.5mL)Unknown 2AdministeredShingrix (Zoster)Wbtyzwx59/13/2021AdministeredShingrix (Zoster)Bcyasmq73/22/2022Administered Social History Tobacco Use: Social History Observation [...] the past year?Daily or almost daily (4 points)Rpcvxx20PdffxtpyqwqshfAgbwejqpKKHVQ-A (Standard) Question Answer Notes Did you have [...] Disease of blood AND /OR blood-forming organ (802243024) Other specified diseases of blood and blood-forming organs (D75.89) ActiveconfirmedProblemGastroesophageal reflux disease (499191904)GERD (gastroesophageal reflux disease) (K21.9)ActiveconfirmedProblemAge related osteoporosis (67788267)Age related osteoporosis (M81.0)ActiveconfirmedProblem Erectile dysfunction (disorder) (070203955)Impotence (N52.9)Activeconfirmed ProblemChronic obstructive pulmonary disease (25653609)Advanced COPD (J44.9) ActiveconfirmedProblemBenign prostatic hypertrophy without outflow obstruction (365185899)BPH (benign prostatic hypertrophy) (N40.0)Activeconfirmed Vital Signs Blood pressure diastolic 74 mm Hg 06/25/2025 Blcbvt45 in06/25/2025lood pressure pjofxljb237 mm Hg06/25/20254726Uytqyj262.8 lbs 06/25/2025BMI21.87 kg/m206/25/2025 Encounters Encounter Location Date Provider Diagnosis [facility] [address] [place] [address] 06/25/2025 Emmanuel Hoy BPH (benign prostati c hypertrophy) N40.0 ; Impotence N52.9 ; GERD (gastroesophageal reflux disease) K21.9 and Advanced COPD J44.9 [facility] [address] [place] [address] 06/25/2025 Emmanuel Clancy Urinary frequency R35.0 [facility] [address] [place] [address] 06/27/2025 Emmanuel Hoy Assessments Encounter Date Diagnosis (ICD Code) Assessment Notes Treatment Notes Treatment Clinical Notes Section Notes 06/25/2025 BPH (benign prostatic hypertroph y) (ICD-10 - N40.0) 06/25/2025Impotence (ICD-10 - N52.9)06/25/2025Urinary frequency (ICD-10 - R35.0) 06/25/2025GERD (gastroesophageal reflux disease) (ICD-10 - K21.9)06/25/2025 Advanced COPD (ICD-10 - J44.9) Plan Of Treatment [...] (EXP 05/2025) 06/24/2024 PSA, PROSTATE-SPECIFIC ANTIGEN 3 CT Chest Low Dose for Screening* 023 [...] End Date MEDICARE [place] [address] [place] [address] [id number] Cecily Heinelf - [facility] the [facility] [place] [address] [place], [place] [id number], WilliamSelf - patient is the insured Medical (General) History Medical History History ICD Code Idiopathic acute pancreatitis without in fection or necrosis K85.00 DVT (deep venous thrombosis) I82.409 Edema R60.9 Age related osteoporosis M81.0 Abnormal CXR with multiple nodules R91.8 Bulging lumbar disc M51.36 BPH (benign prostatic hypertrophy) N40.0 Advanced COPD J44.9 Surgical History Surgery Date(Month/Year) Kyphoplasty (T6) ColonoscopyLeft shoulder surgeryRt pinky finger PinDiscectomy cervical spineleft femur fracture with surgical repairUrolift12/21/24
--- NOTE | 2025-07-02 08:03 | US_ITS ---
The [address] [address] Patient Name: JEREMY SCHNEIDER MRN: [id number] date: 1955 Sex: M Assigned Patient Location: US Current Patient Location: [place] Accession/Order Number: [id number] Exam Date: 07/02/2025 08:07 Report Date: 07/02/2025 09:56 At the request of: ORLANDO BUTHCER MD Procedure: US renal bladder BILATERAL RENAL AND BLADDER ULTRASOUND CLINICAL HISTORY: Urinary Frequency for several months COMPARISON: CT abdomen and pelvis 09/05/2021 Estimation of renal size is approximately 10.2 cm on the right and 10.4 cm on the left. A tiny echogenic focus with twinkle artifact is present at the lower pole of the left kidney, possibly a stone. It measures 3 mm in size. No hydronephrosis is identified. No renal mass lesions were imaged. There is no perinephric fluid. The urinary bladder is partially distended with a volume of 280 mL. A suspected bladder diverticulum is again noted posteriorly above the prostate. No other contour or intraluminal abnormalities are seen. Bilateral ureteral jets are visualized. The prostate measures approximately 4.2 x 3.7 x 2.9 cm in size. The post void bladder residual is 80 mL. US/US renal bladder IMPRESSION: NO OBSTRUCTIVE UROPATHY. POSSIBLE LEFT NEPHROLITHIASIS. POSTVOID BLADDER RESIDUAL AND CONTINUED SUSPECTED BLADDER DIVERTICULUM. Impression dictated by: Brandi An M.D. 07/02/2025 9:56 AM Dictation Location: [place] [address] Electronically authenticated by: [id number] Y Date: 07/02/2025 09:56
== END 2025-07-02 08:00 | disposition home or self-care (01) ==
LOC: US 08:00
PROVIDERS: PCP Family Medicine; Visit Provider Family Medicine
DX: J44.9 Chronic obstructive pulmonary disease, unspecified (principal); R35.0 Frequency of micturition; R91.8 Other nonspecific abnormal finding of lung field
CPT/HCPCS: 71271; 76770